=== PATIENT | female | born 1985 | race Caucasian/White ===

== ENCOUNTER → 2018-03-04 07:39 | Outpatient (CLI) | payer BC, SELFPAY ==
--- NOTE | 2018-03-04 07:43 | US_ITS ---
US gallbladder HISTORY: ITS.REASON: pain ORDERING PHYSICIAN: Cecilia Prescott PATIENT AGE: 32 years Comparison: None FINDINGS: PANCREAS: Unremarkable. No obvious mass or abnormal fluid collection. No ductal dilatation LIVER: Diffuse increased echogenicity of the liver with poor through transmission of sound consistent with fatty liver. Portal vein does not appear enlarged. There is appropriate direction of blood flow within the portal vein. No obvious liver lesions. RIGHT KIDNEY: Unremarkable. Normal size and echogenicity. No hydronephrosis GALLBLADDER: Gallbladder is contracted with stones. Common bile duct is normal at 3 mm. Mild gallbladder wall thickening at 3 to 4 mm. No pericholecystic fluid. IMPRESSION: Cholelithiasis with fatty liver
== END ==
PROVIDERS: PCP Nurse Practitioner Family; Visit Provider Nurse Practitioner Family
DX: R10.11 Right upper quadrant pain (principal)
CPT/HCPCS: 76705

== ENCOUNTER → 2018-05-02 09:29 | Outpatient (CLI) | payer BC, SELFPAY ==
[2018-05-02 10:01] LABS: Basophils % 0.3 % (0.1-2.0); Eosinophils # 0.1 K/mm3 (0.0-0.4); Eosinophils % 1.1 % (0.1-12.0); Lymphocytes # 2.8 K/mm3 (0.7-4.5); Lymphocytes % 25.1 K/mm3 (10-50); Mean Corpuscular Hemoglobin 16.4 pg (27.0-31.2); Mean Corpuscular Volume 60.7 fl (81-99); Mean Platelet Volume 7.2 fl (7.4-10.4); Monocytes # 0.5 K/mm3 (0.1-1.0); Monocytes % 4.4 % (1.7-9.3); Neutrophils # 7.6 K/mm3 (1.8-7.8); Neutrophils % 69.1 % (37.0-80.0); Platelet Count 526 K/mm3 (142-424); Red Blood Count 4.45 M/mm3 (4.20-5.40); Red Cell Distribution Width 18.3 % (11.5-17.5)
[2018-05-02 10:13] LABS: Hemoglobin 7.3 g/dL (12.2-16.2)
[2018-05-02 10:38] LABS: Alanine Aminotransferase 38 U/L (12-78); Albumin Level 3.4 gm/dL (3.4-5.0); Albumin/Globulin Ratio 0.8 (1.1-1.8); Alkaline Phosphatase 108 U/L (46-116); Anion Gap 11.7 mEq/L (5-15); Aspartate Amino Transferase 20 U/L (15-37); Bilirubin,Total 0.4 mg/dL (0.2-1.0); Blood Urea Nitrogen 10 mg/dL (7-18); Calcium 8.6 mg/dL (8.5-10.1); Carbon Dioxide 27 mmol/L (21.0-32.0); Chloride 103 mmol/L (98-107); Creatinine,Serum 0.56 mg/dL (0.55-1.02); Estimated Glomerular Filt Rate 125 ml/min (>60); GFR (African American) 152 ML/MIN (>60); Globulin 4.2 gm/dl (1.3-3.2); Glucose 98 mg/dL (74-106); Potassium 4.7 mmoL/L (3.5-5.1); Sodium 137 mmol/L (136-145); Total Protein,Serum 7.6 gm/dL (6.4-8.2)
== END ==
PROVIDERS: PCP Emergency Medicine; Visit Provider Surgery
DX: K82.9 Disease of gallbladder, unspecified (principal)
CPT/HCPCS: 36415; 80053; 85025

== ENCOUNTER → 2018-05-03 08:17 | Outpatient (CLI) | payer BC, SELFPAY ==
[2018-05-03 08:33] LABS: Hematocrit 26.7 % (37.0-47.0)
[2018-05-03 09:05] LABS: Hemoglobin 7.3 g/dL (12.2-16.2)
[2018-05-03 14:40] LABS: Ferritin 5 ng/mL (8-388)
[2018-05-04 08:25] LABS: Iron 12 ug/dL (27-159); UIBC 448 ug/dL (131-425)
[2018-05-04 13:56] LABS: Folate 8.9 ng/mL (>3.0); Iron Saturation 3 % (15-55)
[2018-05-04 13:56] LABS: Vitamin B12 554 pg/mL (232-1245)
== END ==
PROVIDERS: Nurse Practitioner Family; PCP Emergency Medicine; Visit Provider Surgery
DX: K82.9 Disease of gallbladder, unspecified (principal); D64.9 Anemia, unspecified
CPT/HCPCS: 36415; 82607; 82728; 82746; 83540; 83550; 85014; 85018; 85060; 86850

== ENCOUNTER 2018-05-04 09:03 | Outpatient (CLI) | payer BC, SELFPAY ==
[2018-05-04] VITALS (20 sets, daily range): BP systolic 122–154; BP diastolic 72–98; PULSE 93–107; RESP 16–20; TEMP 36.4–36.7; O2SAT 95–100; BMI 42.5; BMI 42.7
--- NOTE | 2018-05-04 15:03 | PC.NURSE ---
1450- BLOOD ALSO DRAWN FROM IV AT THIS TIME FOR POST HGB/HCT.
[2018-05-04 15:06] LABS: Hematocrit 29.3 % (37.0-47.0); Hemoglobin 8.5 g/dL (12.2-16.2)
== END 2018-05-04 15:30 | disposition home or self-care (01) ==
LOC: INF 09:03
PROVIDERS: PCP Emergency Medicine; Visit Provider Nurse Practitioner Family
DX: D64.9 Anemia, unspecified (principal)
CPT/HCPCS: 36430; 85014; 85018; P9016

== ENCOUNTER 2018-05-11 08:25 | Outpatient (CLI) | payer BC, SELFPAY ==
[2018-05-11 08:53] VITALS: BP 140/83; PULSE 111; RESP 18; TEMP 37.1; O2SAT 98
[2018-05-11 09:08] VITALS: BP 125/72; PULSE 99; RESP 16
[2018-05-11 09:23] VITALS: BP 117/72; PULSE 94; RESP 16
== END 2018-05-11 09:40 | disposition home or self-care (01) ==
LOC: INF 08:34
PROVIDERS: Visit Provider Internal Medicine Medical Oncology
DX: D50.0 Iron deficiency anemia secondary to blood loss (chronic) (principal)
CPT/HCPCS: 96365; J1439

== ENCOUNTER 2018-05-18 08:27 | Outpatient (CLI) | payer BC, SELFPAY ==
[2018-05-18 08:55] VITALS: BP 134/92; PULSE 110; RESP 18; O2SAT 96
[2018-05-18 09:10] VITALS: BP 149/85; PULSE 98; RESP 18
[2018-05-18 09:25] VITALS: BP 153/87; PULSE 99; RESP 18
== END 2018-05-18 09:40 | disposition home or self-care (01) ==
LOC: INF 08:27
PROVIDERS: Visit Provider Internal Medicine Medical Oncology
DX: D50.0 Iron deficiency anemia secondary to blood loss (chronic) (principal)
CPT/HCPCS: 96365; J1439

== ENCOUNTER → 2018-05-20 10:11 | Outpatient (CLI) | payer BC, SELFPAY ==
[2018-05-22 10:23] LABS: Peripheral Smear Review Scanned Result
== END ==
PROVIDERS: Visit Provider Emergency Medicine
DX: Z01.818 Encounter for other preprocedural examination (principal)
CPT/HCPCS: 36415

== ENCOUNTER → 2018-06-08 11:00 | Outpatient (CLI) | payer BC, SELFPAY ==
[2018-06-08 14:02] LABS: Urine Pregnancy, HCG Qual. Negative (Negative)
[2018-06-08 14:09] LABS: Alanine Aminotransferase 61 U/L (12-78); Albumin Level 3.7 gm/dL (3.4-5.0); Alkaline Phosphatase 91 U/L (46-116); Anion Gap 15.3 mEq/L (5-15); Aspartate Amino Transferase 22 U/L (15-37); Bilirubin,Total 0.3 mg/dL (0.2-1.0); Blood Urea Nitrogen 9 mg/dL (7-18); Calcium 8.8 mg/dL (8.5-10.1); Carbon Dioxide 26 mmol/L (21.0-32.0); Chloride 102 mmol/L (98-107); Creatinine,Serum 0.58 mg/dL (0.55-1.02); Estimated Glomerular Filt Rate 120 ml/min (>60); GFR (African American) 146 ML/MIN (>60); Globulin 3.7 gm/dl (1.3-3.2); Glucose 84 mg/dL (74-106); Potassium 4.3 mmoL/L (3.5-5.1); Sodium 139 mmol/L (136-145); Total Protein,Serum 7.4 gm/dL (6.4-8.2)
[2018-06-08 14:47] LABS: Basophils # 0.1 K/mm3 (0-0.2); Basophils % 0.6 % (0.1-2.0); Eosinophils # 0.1 K/mm3 (0.0-0.4); Eosinophils % 0.6 % (0.1-12.0); Hematocrit 41.7 % (37.0-47.0); Hemoglobin 12.7 g/dL (12.2-16.2); Lymphocytes # 2.7 K/mm3 (0.7-4.5); Lymphocytes % 26.9 % (10-50); Mean Corpuscular HGB Conc 30.4 g/dL (31.8-35.4); Mean Corpuscular Hemoglobin 24.7 pg (27.0-31.2); Mean Corpuscular Volume 81.1 fl (81-99); Mean Platelet Volume 7.8 fl (7.4-10.4); Monocytes # 0.4 K/mm3 (0.1-1.0); Monocytes % 3.6 % (1.7-9.3); Neutrophils # 6.9 K/mm3 (1.8-7.8); Neutrophils % 68.4 % (37.0-80.0); Platelet Count 310 K/mm3 (142-424); Red Blood Count 5.14 M/mm3 (4.20-5.40); Red Cell Distribution Width 28.6 % (11.5-17.5); White Blood Count 10.1 K/mm3 (4.8-10.8)
== END ==
PROVIDERS: Visit Provider Surgery
DX: Z01.818 Encounter for other preprocedural examination (principal); R10.11 Right upper quadrant pain
CPT/HCPCS: 36415; 80053; 81025; 85025

== ENCOUNTER → 2018-06-22 13:29 | Outpatient (CLI) | payer BC, SELFPAY ==
[2018-06-22 14:02] LABS: Basophils # 0.1 K/mm3 (0-0.2); Basophils % 0.5 % (0.1-2.0); Eosinophils # 0.2 K/mm3 (0.0-0.4); Eosinophils % 1.8 % (0.1-12.0); Hematocrit 41.4 % (37.0-47.0); Hemoglobin 12.6 g/dL (12.2-16.2); Lymphocytes # 2.9 K/mm3 (0.7-4.5); Lymphocytes % 26.1 % (10-50); Mean Corpuscular HGB Conc 30.5 g/dL (31.8-35.4); Mean Corpuscular Hemoglobin 25.1 pg (27.0-31.2); Mean Corpuscular Volume 82.4 fl (81-99); Mean Platelet Volume 7.3 fl (7.4-10.4); Monocytes # 0.4 K/mm3 (0.1-1.0); Monocytes % 3.1 % (1.7-9.3); Neutrophils # 7.7 K/mm3 (1.8-7.8); Neutrophils % 68.5 % (37.0-80.0); Platelet Count 399 K/mm3 (142-424); Red Blood Count 5.03 M/mm3 (4.20-5.40); White Blood Count 11.2 K/mm3 (4.8-10.8)
[2018-06-22 14:03] LABS: Red Cell Distribution Width 26.2 % (11.5-17.5)
[2018-06-22 14:32] LABS: Ferritin 174 ng/mL (8-388)
[2018-06-23 08:27] LABS: Iron 54 ug/dL (27-159); UIBC 215 ug/dL (131-425)
[2018-06-23 09:43] LABS: Iron Saturation 20 % (15-55)
== END ==
PROVIDERS: Visit Provider Internal Medicine Medical Oncology
DX: D50.0 Iron deficiency anemia secondary to blood loss (chronic) (principal)
CPT/HCPCS: 36415; 82728; 83540; 83550; 85025

== ENCOUNTER → 2018-11-24 07:58 | Outpatient (CLI) | payer BC, SELFPAY ==
[2018-11-24 08:29] LABS: Basophils % 0.4 % (0.1-2.0); Eosinophils # 0.1 K/mm3 (0.0-0.4); Eosinophils % 1.2 % (0.1-12.0); Hematocrit 40.1 % (37.0-47.0); Hemoglobin 12.9 g/dL (12.2-16.2); Lymphocytes # 3.5 K/mm3 (0.7-4.5); Lymphocytes % 33.7 % (10-50); Mean Corpuscular HGB Conc 32.2 g/dL (31.8-35.4); Mean Corpuscular Hemoglobin 27.3 pg (27.0-31.2); Mean Corpuscular Volume 84.6 fl (81-99); Mean Platelet Volume 7.3 fl (7.4-10.4); Monocytes # 0.4 K/mm3 (0.1-1.0); Monocytes % 3.8 % (1.7-9.3); Neutrophils # 6.4 K/mm3 (1.8-7.8); Neutrophils % 60.8 % (37.0-80.0); Platelet Count 311 K/mm3 (142-424); Red Blood Count 4.73 M/mm3 (4.20-5.40); Red Cell Distribution Width 13.6 % (11.5-17.5); White Blood Count 10.5 K/mm3 (4.8-10.8)
[2018-11-24 09:21] LABS: Ferritin 25 ng/mL (8-388)
[2018-11-25 08:18] LABS: Iron 73 ug/dL (27-159); UIBC 319 ug/dL (131-425)
[2018-11-25 10:12] LABS: Iron Saturation 19 % (15-55)
== END ==
PROVIDERS: Visit Provider Internal Medicine Medical Oncology
DX: D50.0 Iron deficiency anemia secondary to blood loss (chronic) (principal)
CPT/HCPCS: 36415; 82728; 83540; 83550; 85025

== ENCOUNTER → 2019-02-23 08:17 | Outpatient (CLI) | payer BC, SELFPAY ==
[2019-02-23 08:45] LABS: Basophils % 0.3 % (0.1-2.0); Eosinophils # 0.2 K/mm3 (0.0-0.4); Eosinophils % 1.4 % (0.1-12.0); Hematocrit 38.7 % (37.0-47.0); Hemoglobin 12.5 g/dL (12.2-16.2); Lymphocytes # 2.9 K/mm3 (0.7-4.5); Lymphocytes % 26.9 % (10-50); Mean Corpuscular HGB Conc 32.2 g/dL (31.8-35.4); Mean Corpuscular Hemoglobin 27.3 pg (27.0-31.2); Mean Corpuscular Volume 84.6 fl (81-99); Mean Platelet Volume 7.2 fl (7.4-10.4); Monocytes # 0.4 K/mm3 (0.1-1.0); Monocytes % 3.8 % (1.7-9.3); Neutrophils # 7.4 K/mm3 (1.8-7.8); Neutrophils % 67.6 % (37.0-80.0); Platelet Count 319 K/mm3 (142-424); Red Blood Count 4.57 M/mm3 (4.20-5.40); Red Cell Distribution Width 14.3 % (11.5-17.5); White Blood Count 10.9 K/mm3 (4.8-10.8)
[2019-02-23 09:51] LABS: Ferritin 33 ng/mL (8-388)
[2019-02-24 08:13] LABS: Iron 82 ug/dL (27-159); UIBC 290 ug/dL (131-425)
[2019-02-24 12:35] LABS: Iron Saturation 22 % (15-55)
== END ==
PROVIDERS: Visit Provider Internal Medicine Medical Oncology
DX: D50.0 Iron deficiency anemia secondary to blood loss (chronic) (principal)
CPT/HCPCS: 36415; 82728; 83540; 83550; 85025

== ENCOUNTER 2021-08-12 10:01 | Emergency (ER) | payer BC, SELFPAY ==
[2021-08-12 10:15] VITALS: BP 141/93; PULSE 86; RESP 17; TEMP 36.7; O2SAT 97; BMI 41.3
[2021-08-12 10:26] LABS: Apearance,Urine Clear (Clear); Bilirubin,Urine Negative (Negative); Blood, Urine 3+ (Negative); Color,Urine Dark Yellow (Yellow); Glucose,Urine (UA) Negative (Negative); Ketones,Urine Negative (Negative); PH,Urine 6.5 (5.0-8.5); Protein,Urine 1+ (Negative); Specific Gravity, Urine 1.025 (1.005-1.030); UTC Leukocyte Esterase,Urine 2+ (Negative); UTC Nitrate,Urine Positive (Negative); Urobilinogen,Urine 1 EU/dl (0.2)
--- NOTE | 2021-08-12 10:26 | HMH.EDUTC ---
[facility] [place] Disposition Clinical Impression: UTI (urinary tract infection) Disposition: Home, Self-Care Condition on Discharge: Good Instructions: Urinary Tract Infection, DI for Urinary Tract Infection (UTI), Phenazopyridine Additional Instructions: Drink plenty of fluids. Take tylenol or ibuprofen for pain or fever. Take the medications as directed. Follow up with your regular doctor. GO TO THE ER FOR ANY WORSENING SYMPTOMS The pyridium will make your urine turn orange, this is an expected side effect. It will stain your clothes if it comes into contact with them. Prescriptions: Ondansetron [Zofran 4mg ODT] 4 mg PO Q8HP PRN #20 tab PRN Reason: Nausea Transmission Status: Received by [facility] Sulfamethoxazole/Trimethoprim [Bactrim DS tablet] 1 each PO BID 7 Days #14 tab Transmission Status: Received by [facility] Phenazopyridine HCl [Pyridium 200mg Tablet] 200 pow PO TID #6 tab Transmission Status: Received by [facility] Referrals: Lamont Manrique APRN [Primary Care Provider] - Forms: Work/School Release Time of Disposition: 10:55 Medical Decision Making - Medical Records Medical records reviewed: No: I reviewed the patient's medical records. - Chris Inquiry Pt receiving controlled substance: No Vital Signs: 08/12/21 10:15 08/12/21 11:02 Temperature 98.0 F 98.0 F Temperature Source Oral Pulse Rate 86 Pulse Rate [Right Brachial] 86 Respiratory Rate 17 17 Blood Pressure 141/93 H Blood Pressure [Right Arm] 141/93 H Blood Pressure Mean [Right Arm] 109 Blood Pressure Source [Right Arm] Automatic Cuff Blood Pressure Position [Right Arm] Sitting 02 Sat by Pulse Oximetry 97 Oxygen Delivery Method Room Air - Lab Data Lab results reviewed: Yes: I reviewed the patient's lab results. Lab Results 08/12/21 10:16: Urine Color Dark yellow, Urine Appearance Clear, Urine pH 6.5, Ur Specific [place] 1.025, Urine Protein 1+, Urine Glucose (UA) Negative, Urine Ketones Negative, Urine Blood 3+, Urine Nitrate Positive A, Urine Bilirubin Negative, Urine Urobilinogen 1, Ur Leukocyte Esterase 2+ A Orders (Tests/Meds): ORDERS Category Date Time Status Urine Culture Stat Micro 08/12/21 10:25 Received [facility] [place] HPI - General Stated complaint: possible uti Time Seen by Provider: 08/12/21 10:26 - History of Present Illness Provider Complaint: She states that for the past 4 days she has had dysuria and low back pain. She feels like she has a uti. - Related Data Home Medications Medication Instructions Recorded Confirmed Escitalopram Oxalate 20 mg PO DAILY 08/12/21 08/12/21 hydroCHLOROthiazide 12.5 mg PO DAILY 08/12/21 08/12/21 [Hydrochlorothiazide 12.5mg Tab] Previous Rx's Medication Instructions Recorded Ondansetron [Zofran 4mg ODT] 4 mg PO Q8HP PRN #20 tab 08/12/21 Phenazopyridine HCl [Pyridium 200 pow PO TID #6 tab 08/12/21 200mg Tablet] Sulfamethoxazole/Trimethoprim 1 each PO BID 7 Days #14 tab 08/12/21 [Bactrim DS tablet] Allergies Allergy/AdvReac Type Severity Reaction Status Date / Time Penicillins Allergy Verified 07/31/21 10:45 [facility] History - Hepatitis A Screen Attestation statement:: This patient has been screened for Hepatitis A risk factors. I have reviewed the patient's past medical history: Yes Medical History: Reports:: Anxiety, Depression, Hypertension Denies:: Cancer, Diabetes Mellitus Type 1, Diabetes Mellitus Type 2, Internal Pacemaker, MRSA, Seizures Other Medical History: Reports: Anemia. Denies: Blood Transfusion Reaction, Thyroid Disease Other Surgeries: Yes: No Previous Surgery, Cholecystectomy, Other. No: Pacemaker Amputation: No Fractures: No Comment: [place] teeth 2003 - Social History Smoking Status: Never smoker Alcohol Intake: never Substance Use Type: denies use Occupational Status: employed Housing: house Household Members: family - Psychiatric History Ps
[2021-08-12 11:02] VITALS: BP 141/93; PULSE 86; RESP 17; TEMP 36.7; O2SAT 97
== END 2021-08-12 11:03 | disposition home or self-care (01) ==
PROVIDERS: Emergency Provider Nurse Practitioner Family; PCP Nurse Practitioner Family
DX: N39.0 Urinary tract infection, site not specified (principal); I10 Essential (primary) hypertension; F41.8 Other specified anxiety disorders
CPT/HCPCS: 81003; 87086; 87088; 87186; 99202; G0463

== ENCOUNTER → 2021-08-19 14:23 | Outpatient (POV) | payer BC, SELFPAY | PROVIDERS: Visit Provider Dermatology | DX: Z00.00 Encounter for general adult medical examination without abnormal findings (principal) ==

== ENCOUNTER → 2021-08-26 15:10 | Outpatient (POV) | payer BC, SELFPAY | PROVIDERS: Visit Provider Dermatology | DX: Z00.00 Encounter for general adult medical examination without abnormal findings (principal) ==

== ENCOUNTER 2021-09-09 09:01 | Emergency (ER) | payer BC, SELFPAY ==
--- NOTE | 2021-09-09 09:24 | HMH.EDUTC ---
[facility] [place] Clinical Impression: UTI (urinary tract infection) Qualifiers: Urinary tract infection type: site unspecified Hematuria presence: with hematuria Qualified Code(s): N39.0 - Urinary tract infection, site not specified Disposition: Home, Self-Care Condition on Discharge: Good Instructions: Urinary Tract Infection, Urine Culture, DI for Urinary Tract Infection (UTI) Additional Instructions: Drink plenty of fluids. Take tylenol or ibuprofen for pain or fever. Take the medications as directed. Follow up with your regular doctor. GO TO THE ER FOR ANY WORSENING SYMPTOMS The pyridium will make your urine turn orange, this is an expected side effect. It will stain your clothes if it comes into contact with them. We will culture the urine. That will tell what bacteria is causing your infection and which antibiotics will treat it best. Sometimes the first antibiotic we prescribe turns out to not work against different bacteria. So, make sure you follow up within 3 days if you are not getting better. Prescriptions: Ondansetron [Zofran 4mg ODT] 4 mg PO Q8HP PRN #20 tab PRN Reason: Nausea Transmission Status: Received by [facility] Ciprofloxacin HCl [Cipro 500mg Tab] 500 mg PO BID 7 Days #14 tab Transmission Status: Received by [facility] Phenazopyridine HCl [Pyridium 200mg Tablet] 200 pow PO TID #6 tab Transmission Status: Received by [facility] Referrals: Lamont Manrique APRN [Primary Care Provider] - Forms: Work/School Release Time of Disposition: 09:40 Medical Decision Making - Medical Records Medical records reviewed: No: I reviewed the patient's medical records. - Chris Inquiry Pt receiving controlled substance: No Vital Signs: 09/09/21 09:34 09/09/21 09:57 Temperature 98.1 F 98.1 F Temperature Source Oral Pulse Rate 103 H Pulse Rate [Left] 103 H Respiratory Rate 16 16 Blood Pressure 145/94 H Blood Pressure [Right Arm] 145/94 H Blood Pressure Mean [Right Arm] 111 02 Sat by Pulse Oximetry 97 - Lab Data Lab results reviewed: Yes: I reviewed the patient's lab results. Lab Results 09/09/21 09:33: Urine Color [place], Urine Appearance Clear, Urine pH 5.5, Ur Specific [place] 1.020, Urine Protein 1+, Urine Glucose (UA) Trace, Urine Ketones Negative, Urine Blood 2+, Urine Nitrate Positive A, Urine Bilirubin Negative, Urine Urobilinogen 1, Ur Leukocyte Esterase 3+ A Orders (Tests/Meds): ORDERS Category Date Time Status Urine Culture Stat Micro 09/09/21 09:33 [place] [facility] [place] - General Stated complaint: possible uti Time Seen by Provider: 09/09/21 09:24 - History of Present Illness Provider Complaint: She states that she has had right sided low back pain and urinary frequency for the past 2 days. She has been getting uti's kind of frequently recently and that is what she thinks is happening now. - Related Data Home Medications Medication Instructions Recorded Confirmed Escitalopram Oxalate 20 mg PO DAILY 08/12/21 08/12/21 hydroCHLOROthiazide 12.5 mg PO DAILY 08/12/21 08/12/21 [Hydrochlorothiazide 12.5mg Tab] Previous Rx's Medication Instructions Recorded Ondansetron [Zofran 4mg ODT] 4 mg PO Q8HP PRN #20 tab 08/12/21 Phenazopyridine HCl [Pyridium 200 pow PO TID #6 tab 08/12/21 200mg Tablet] Sulfamethoxazole/Trimethoprim 1 each PO BID 7 Days #14 tab 08/12/21 [Bactrim DS tablet] Ciprofloxacin HCl [Cipro 500mg 500 mg PO BID 7 Days #14 tab 09/09/21 Tab] Ondansetron [Zofran 4mg ODT] 4 mg PO Q8HP PRN #20 tab 09/09/21 Phenazopyridine HCl [Pyridium 200 pow PO TID #6 tab 09/09/21 200mg Tablet] Allergies Allergy/AdvReac Type Severity Reaction Status Date / Time Penicillins Allergy Verified 07/31/21 10:45 [facility] History - Hepatitis A Screen Attestation statement:: This patient has been screened for Hepatitis A risk factors. I have reviewed the patient's
[2021-09-09 09:34] VITALS: BP 145/94; PULSE 103; RESP 16; TEMP 36.7; O2SAT 97; BMI 42.7
[2021-09-09 09:57] VITALS: BP 145/94; PULSE 103; RESP 16; TEMP 36.7
[2021-09-09 19:04] LABS: Apearance,Urine Clear (Clear); Color,Urine Orange (Yellow); PH,Urine 5.5 (5.0-8.5)
[2021-09-09 19:05] LABS: Bilirubin,Urine Negative (Negative); Blood, Urine 2+ (Negative); Glucose,Urine (UA) Trace (Negative); Ketones,Urine Negative (Negative); Protein,Urine 1+ (Negative); UTC Leukocyte Esterase,Urine 3+ (Negative); UTC Nitrate,Urine Positive (Negative); Urobilinogen,Urine 1 EU/dl (0.2)
== END 2021-09-09 09:57 | disposition home or self-care (01) ==
PROVIDERS: Emergency Provider Nurse Practitioner Family; PCP Nurse Practitioner Family
DX: N30.00 Acute cystitis without hematuria (principal); F41.8 Other specified anxiety disorders; I10 Essential (primary) hypertension
CPT/HCPCS: 81003; 87086; 87088; 87186; 99202; G0463

== ENCOUNTER → 2021-09-16 15:27 | Outpatient (POV) | payer BC, SELFPAY | PROVIDERS: Visit Provider Dermatology | DX: Z00.00 Encounter for general adult medical examination without abnormal findings (principal) ==

== ENCOUNTER → 2021-12-02 14:51 | Outpatient (POV) | payer BC, SELFPAY | PROVIDERS: Visit Provider Dermatology | DX: Z00.00 Encounter for general adult medical examination without abnormal findings (principal) ==

== ENCOUNTER → 2022-02-17 15:21 | Outpatient (POV) | payer BC, SELFPAY | PROVIDERS: Visit Provider Dermatology | DX: Z00.00 Encounter for general adult medical examination without abnormal findings (principal) ==

== ENCOUNTER → 2022-05-19 16:08 | Outpatient (POV) | payer BC, SELFPAY | PROVIDERS: Visit Provider Dermatology | DX: Z00.00 Encounter for general adult medical examination without abnormal findings (principal) ==

== ENCOUNTER 2022-06-04 08:48 | Emergency (ER) | payer BC, SELFPAY ==
[2022-06-04 09:20] VITALS: BP 146/79; PULSE 86; RESP 18; TEMP 36.8; O2SAT 98; BMI 44.4
--- NOTE | 2022-06-04 09:53 | EXP.UTC ---
Discharge Plan Disposition Patient Disposition: Home, Self-Care Condition: Good Prescriptions Prescriptions: New azithromycin [Zithromax Z-Nav] 250 mg tablet See Rx Instructions .ROUTE .COMPLEX 5 Days Qty: 6 0RF Rx Instructions: For 250 mg dose pack: take 500 mg today (day 1), then 250 mg for 4 days (days 2-5) No Action ibuprofen 600 mg tablet 600 mg PO Q8H PRN (Reason: pain) Qty: 60 0RF hydrochlorothiazide 12.5 mg tablet See Rx Instructions .ROUTE .COMPLEX Qty: 90 1RF Dose Instruction: TAKE ONE TABLET BY MOUTH EVERY DAY Rx Instructions: TAKE ONE TABLET BY MOUTH EVERY DAY escitalopram oxalate 20 mg tablet 20 mg PO DAILY Qty: 90 1RF Referrals Follow up/Referrals: Jacob Nichols MD [Primary Care Provider] - See instructions Activity Restrictions/Add. Instructions Additional Instructions/Restrictions: *Monitor Temp, Over the counter Motrin or Tylenol as directed/as needed Tylenol every 4 hours and Motrin every 6 hours (as long as your family doctor has told you that you can take it) for fever or pain. and straight to ER if unable to lower temp less than 101.0 after medication given *Warm salt water gargles may help to soothe the throat *Throat Lozenges? *Warm fluids like tea with honey may help to soothe the throat? *Sleep elevated *Humidifier/Vaporizer Your throat swab was sent for culture. Those results are typically sent to your primary care. Be sure to follow up in 2-3 days with your family doctor/primary care physician if no improvement so they can review those result and treat if necessary. If you don?t have a primary care doctor, I recommend you get one but in the mean time, you will have to return to a walk in clinic Follow up IMMEDIATELY for new or worsening symptoms or no Noticeable improvement over the next 48-72 hours. 911 for difficulty breathing or swallowing Clinical Impressions Clinical Impression: Acute bacterial tonsillitis Stand Alone Forms Stand Alone Forms: Work/School Release Instructions Patient Instructions: Strep Throat, DI for Strep Throat Discharge ED Provider: Kat Masters [facility] General Stated complaint: White patch on tonsil Mode of Arrival: Ambulatory Source of Information: Patient Limitations: No Limitations Time Seen by Provider: 06/04/22 09:53 Description of Symptoms (Recalled from Triage Doc. 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 #90 tabs 03/25/22 azithromycin 250 mg tablet See Rx Instructions PO .COMPLEX 5 06/04/22 (Zithromax Z-Nav) days #6 tabs Allergies Allergy/AdvReac Type Severity Reaction Status Date / Time Penicillins Allergy Verified 01/27/22 10:30 Worker's Comp Is this a Worker's Comp case?: No PFSH PFSH Medical History (Updated 06/04/22 @ 10:05 by Kat Masters APRN) Anxiety Depression History of anemia Hypertension Urinary tract infection Surgical History (Updated 06/04/22 @ 09:40 by Gail Jean RN) History of cholecystectomy Hx of wisdom tooth extraction Social History (Updated 06/04/22 @ 09:40 by Gail Jean RN) Smoking Status:
[2022-06-04 10:03] LABS: UTC Strep Screen (Rapid) Negative (Negative)
[2022-06-04 10:05] VITALS: BP 146/79; PULSE 86; RESP 18; TEMP 36.8; O2SAT 98
== END 2022-06-04 10:08 | disposition home or self-care (01) ==
PROVIDERS: Emergency Provider Nurse Practitioner; PCP Emergency Medicine
DX: J03.80 Acute tonsillitis due to other specified organisms (principal)
CPT/HCPCS: 87880; 99212; G0463

== ENCOUNTER → 2022-08-06 09:15 | Outpatient (CLI) | payer BC, SELFPAY ==
[2022-08-06 14:49] LABS: Basophils # 0.1 K/mm3 (0-0.2); Basophils % 0.6 % (0.1-2.0); Eosinophils # 0.1 K/mm3 (0.0-0.4); Eosinophils % 1.2 % (0.1-12.0); Hemoglobin 14.1 g/dL (12.2-16.2); Lymphocytes # 1.7 K/mm3 (0.7-4.5); Lymphocytes % 17.5 % (10-50); Mean Corpuscular HGB Conc 33.5 g/dL (31.8-35.4); Mean Corpuscular Volume 86.7 fl (81-99); Mean Platelet Volume 9.3 fl (7.4-10.4); Monocytes # 0.4 K/mm3 (0.1-1.0); Monocytes % 3.7 % (1.7-9.3); Neutrophils # 7.4 K/mm3 (1.8-7.8); Platelet Count 344 K/mm3 (142-424); Red Blood Count 4.85 M/mm3 (4.20-5.40); Red Cell Distribution Width 13.9 % (11.5-17.5); White Blood Count 9.6 K/mm3 (4.8-10.8)
[2022-08-06 14:58] LABS: Alanine Aminotransferase 32 U/L (12-78); Albumin Level 4.3 g/dl (3.5-5.0); Albumin/Globulin Ratio 1.6 (1.1-1.8); Alkaline Phosphatase 79 U/L (38-126); Anion Gap 11.9 mEq/L (5-15); Aspartate Amino Transferase 28 U/L (14-36); Bilirubin,Total 0.6 mg/dl (0.2-1.3); Blood Urea Nitrogen 12 mg/dl (7-17); Calcium 8.6 mg/dl (8.4-10.2); Carbon Dioxide 25 mmol/L (22.0-30.0); Chloride 104 mmol/L (98-107); Chol/HDL Ratio 5.2 (1-3.5); Cholesterol 171 mg/dl (140-200); Estimated Glomerular Filt Rate 113 ml/min (>60); GFR (African American) 137 ML/MIN (>60); Globulin 2.7 g/dL (1.3-3.2); Glucose 177 mg/dl (74-100); HDL Cholesterol 33 mg/dl (40-60); Potassium 3.9 mmoL/L (3.5-5.1); Sodium 137 mmol/L (136-145); Triglycerides 68 mg/dl (30-150); VLDL Cholesterol 14 mg/dL (0-40)
[2022-08-06 15:09] LABS: Direct LDL Cholesterol 115.04 mg/dL (100-129)
[2022-08-06 15:29] LABS: Thyroid Stimulating Hormone 2.49 uIU/mL (0.465-4.68)
[2022-08-06 15:47] LABS: Iron 82 ug/dL (37-170)
[2022-08-06 16:02] LABS: Total Iron Binding Capacity 311 ug/dL (265-497)
[2022-08-06 16:24] LABS: Ferritin 52.2 ng/ml (6.24-137)
== END ==
PROVIDERS: PCP Nurse Practitioner Family; Visit Provider Nurse Practitioner Family
DX: R53.83 Other fatigue (principal); I10 Essential (primary) hypertension; E66.9 Obesity, unspecified; Z68.41 Body mass index [BMI] 40.0-44.9, adult
CPT/HCPCS: 80053; 80061; 82728; 83540; 83550; 84443; 85025

== ENCOUNTER → 2023-02-02 12:50 | Outpatient (CLI) | payer BC, SELFPAY | PROVIDERS: PCP Nurse Practitioner Family; Visit Provider Nurse Practitioner Family | DX: G47.33 Obstructive sleep apnea (adult) (pediatric) (principal); R06.83 Snoring; R40.0 Somnolence | CPT/HCPCS: G0399 ==

== ENCOUNTER → 2023-03-18 15:00 | Outpatient (CLI) | payer BC, SELFPAY ==
[2023-03-18 16:58] LABS: Basophils # 0.1 K/mm3 (0-0.2); Basophils % 0.6 % (0.1-2.0); Eosinophils # 0.1 K/mm3 (0.0-0.4); Eosinophils % 1.3 % (0.1-12.0); Hematocrit 46.4 % (37.0-47.0); Hemoglobin 15.4 g/dL (12.2-16.2); Lymphocytes # 2.1 K/mm3 (0.7-4.5); Lymphocytes % 19.4 % (10-50); Mean Corpuscular HGB Conc 33.2 g/dL (31.8-35.4); Mean Corpuscular Hemoglobin 28.5 pg (27.0-31.2); Mean Corpuscular Volume 86.1 fl (81-99); Mean Platelet Volume 8.5 fl (7.4-10.4); Monocytes # 0.5 K/mm3 (0.1-1.0); Monocytes % 4.8 % (1.7-9.3); Neutrophils # 8.1 K/mm3 (1.8-7.8); Platelet Count 342 K/mm3 (142-424); Red Blood Count 5.39 M/mm3 (4.20-5.40); Red Cell Distribution Width 13.4 % (11.5-17.5)
[2023-03-18 18:00] LABS: Chloride 100 mmol/L (98-107); Potassium 4.3 mmoL/L (3.5-5.1); Sodium 138 mmol/L (136-145)
[2023-03-18 18:03] LABS: Alanine Aminotransferase 35 U/L (12-78); Albumin Level 4.2 g/dl (3.5-5.0); Alkaline Phosphatase 109 U/L (38-126); Anion Gap 17.3 mEq/L (5-15); Aspartate Amino Transferase 30 U/L (14-36); Blood Urea Nitrogen 15 mg/dl (7-17); Calcium 9.7 mg/dl (8.4-10.2); Carbon Dioxide 25 mmol/L (22.0-30.0); Cholesterol 188 mg/dl (140-200); Estimated Glomerular Filt Rate 81 ml/min (>60); GFR (African American) 98 ML/MIN (>60); Glucose 134 mg/dl (74-100); Total Protein,Serum 7.7 g/dl (6.3-8.2); Triglycerides 188 mg/dl (30-150); VLDL Cholesterol 38 mg/dL (0-40)
[2023-03-18 18:04] LABS: Chol/HDL Ratio 5.5 (1-3.5); HDL Cholesterol 34 mg/dl (40-60); Magnesium 1.7 mg/dl (1.6-2.3)
[2023-03-18 18:15] LABS: Direct LDL Cholesterol 124.19 mg/dL (100-129)
[2023-03-18 18:34] LABS: Thyroid Stimulating Hormone 3.06 uIU/mL (0.465-4.68)
[2023-03-18 21:12] LABS: Bilirubin,Indirect 0.2 mg/dL (0.0-0.9); Bilirubin,Unconjugated 0.3 mg/dL (0.0-1.1)
[2023-03-18 21:13] LABS: Bilirubin,Total 0.2 mg/dl (0.2-1.3)
== END ==
PROVIDERS: PCP Nurse Practitioner Family; Visit Provider Nurse Practitioner
DX: R06.00 Dyspnea, unspecified (principal); R00.0 Tachycardia, unspecified; R60.0 Localized edema; R94.31 Abnormal electrocardiogram [ECG] [EKG]; Z79.899 Other long term (current) drug therapy
CPT/HCPCS: 36415; 80048; 80061; 80076; 83735; 84439; 84443; 85025

== ENCOUNTER → 2023-04-08 08:40 | Outpatient (CLI) | payer BC, SELFPAY ==
--- NOTE | 2023-04-08 08:45 | CA_ITS ---
APPROVED REPORT EXAM: Comprehensive 2D, Doppler, and color-flow Echocardiogram Sand Cutter Operator: Raiza Montenegro, RCS, RVS Ht: 5 ft 4 in Wt: 275lbs BSA: 2.24 BP: 166/109 mmHg Indications: Tachycardia, Abn EKG,Ex-smoker, SOB, HTN 2D Dimensions Aortic Root 2.91 cm F: 2.7 - 3.3 LA Volume 48.90 mL Left Atrium 3.82 cm F: 2.7 - 3.8 LA Volume Index 21.587227 mL/m2 (M/F) 16-34 LVOT 1.97 cm (M/F) 1.5-2.5 M-Mode Dimensions RVDd 2.75 cm (0.9-2.6) LA Diam 4.64 cm (1.9-4.0) LVDd 4.95 cm (3.5-5.7) Ao Diam 3.15 cm (2.0-3.7) LVDs 3.17 cm (3.5-5.7) IVSd 1.06 cm (0.6-1.1) PWd 1.06 cm (0.6-1.1) EF (Teich) 65.40% EPSs 0.34 cm FS 36.00% EDV (Teich) 115.50 mL TAPSE 2.48 (<1.7) ESV (Teich) 40.00 mL LV Diastology E Decel Time 220.00 (160-240 msec) E/A Ratio 1.83 MED E' 13.00 (< 7 cm/sec) MED A' 8.80 cm/s E'/MED E' Ratio 7.21 (>14) LAT E' 16.50 (<10 cm/sec) LAT A' 7.30 cm/s E/LAT E' Ratio 5.68 (>14) Aortic Valve LVOT Max 103.00 (70-110 cm/s) LVOT VTI 21.01 cm AoV Peak [place]. 103.00 (50-130 cm/s) AO Peak GR. 4.20 mmHg AO Mean GR. 2.10 (<5 mmHg) AO VTI 19.57 (18-25 cm) LALA (VTI) 3.27 (2.5-4.5 cm2) Mitral Valve MV A Velocity 51.00 (40-130 cm/s) E/A Ratio 1.83 MV Decel. Time 220.00 (160-240 ms) Pulmonary Valve PV Peak Velocity 90.00 (50-150 cm/s) Left Ventricle The left ventricle is normal size. The left ventricular systolic function is normal. The left ventricular ejection fraction is within the normal range. There is normal left ventricular wall thickness. There is normal LV segmental wall motion. The left ventricular diastolic function is normal. LVEF is 55-60%. Right Ventricle The right ventricle is normal size. The right ventricular systolic function is normal. Atria The left atrium size is normal. The right atrium size is normal. There is no Doppler evidence of interatrial shunt. Aortic Valve The aortic valve opens well. There is no aortic valvular stenosis. No aortic regurgitation. Mitral Valve The mitral valve is normal in structure. No evidence of mitral valve stenosis. Trace mitral regurgitation. Tricuspid Valve The tricuspid valve leaflets are thin and pliable. Trace tricuspid regurgitation. There is insufficient TR jet to estimate RVSP. Pulmonic Valve The pulmonary valve is normal in structure. Trace pulmonic regurgitation. Great Vessels The aortic root is normal in size. The ascending aorta is normal in size. IVC is normal in size and collapses >50% with inspiration. Pericardium There is no pericardial effusion. Other Information Study Quality: Fair Conclusion Normal biventricular systolic function. No significant valvular stenosis or regurgitation. Electronically signed by : Hien Boyce MD 04/11/2023 15:07:21
== END ==
PROVIDERS: PCP Nurse Practitioner Family; Visit Provider Nurse Practitioner
DX: R06.00 Dyspnea, unspecified (principal); R00.0 Tachycardia, unspecified; R94.31 Abnormal electrocardiogram [ECG] [EKG]; R60.0 Localized edema
CPT/HCPCS: 93306

== ENCOUNTER → 2023-05-06 11:45 | Outpatient (CLI) | payer BC, SELFPAY ==
--- NOTE | 2023-05-06 | CA_ITS ---
APPROVED REPORT Exam: Pharmacologic Technologist: Nicole Salinas, Ht: 5 ft 5 in Wt: 280 lbs BSA: 2.28 m2 HR: 79 bpm BP: 133/71 mmHg Rhythm: NSR Medical History Medications: Hydrochlorothiazide,,,,, LoraTADINE,,,,, BisOPROLOL Fumarate,,,,, Escitalopram Oxalate,,,,, SLynd,,,,, SpirOLolactone,,,,, Stress Test Details Test: LEXISCAN Reason for pharmacologic stress test: physical limitation. HR Resting HR: 68 bpm Max Heart Rate (APMHR): 183 bpm Max HR Achieved: 102 bpm Target HR (85% APMHR): 156 bpm % of APMHR: 56 Recovery HR: 74 bpm BP Resting BP: 133.0/71.0 mmHg Max BP: 138.0/80.0 mmHg Recovery BP: 123.0/76.0 mmHg ECG Resting ECG: NSR, nonspecific ST changes in inferior leads Stress ECG: No significant ST changes Arrhythmia: None Clinical Exercise duration: 04:01 min Highest Stage Achieved: Stress ECG Conclusion Symptoms: mild leg & stomach discomfort. No CP. Arrhythmias/Ectopy: None ST-T Changes: No significant ST changes. Conclusion: Unremarkable Lexiscan stress test. Myoview images are reported separately. Test Summary REST . . . . . . . Resting REST 02:30 . . 68 . 133/ 71 . . Stage 1 01:00 . . 100 . . . . Stage 2 01:00 . . 95 . . . . Stage 3 01:00 . . 85 . 138/ 80 . . Stage 4 01:00 . . 83 . 124/ 69 . . Stage 4 01:01 . . 83 . 124/ 69 . Stop exercise at 04:01 RECOVERY 01:00 . . 85 . 126/ 71 . . RECOVERY 02:00 . . 84 . 126/ 71 . . RECOVERY 03:00 . . 74 . 132/ 78 . . RECOVERY 03:22 . . 74 . 123/ 76 . . Electronically signed by : Hien Boyce MD 05/09/2023 22:33:14
--- NOTE | 2023-05-06 11:45 | NM_ITS ---
APPROVED REPORT Exam: Nuclear Stress Test Indication: chest pain..soa Patient Location: Outpatient Stress Tech: Nicole Davis [place] Tech:DENNY Corea RT(R)(N) Ht: 5 ft 6 in Wt: 278 lbs Bra Size: dd HR: 68 bpm BP: 133/71 mmHg BSA: 2.30 m2 Rhythm: NSR TID: 1.20 BMI: 44.8 History: chest pain..soa Procedure: Patient received 0.4 mg of intravenous Lexiscan, resting heart rate 68 bpm, resting blood pressure 133/71 mmHg, with Lexiscan maximum heart rate achieved was 102 bpm which is 85 % of the maximum predicted heart rate and blood pressure was 138/80 mmHg. With Lexiscan, patient denied any complaint of chest pain. Cardiac Stress and Resting SPECT Images: Cardiac Stress and Resting SPECT images were obtained using technetium 99m Myoview 31.7 mCi stress and 10.64 mCi at rest. Raw images demonstrate significant soft tissue overlap with the anterior LV wall border. This may affect the diagnostic interpretation of the study findings. Resting and stress imaging in supine position demonstrate a large sized, moderate, predominantly fixed perfusion defect in the anterior LV wall. This is no longer visualized with prone stress imaging. Findings are suggestive of soft tissue attenuation. There is also borderline increase in transient ischemic dilatation ratio (TID 1.20), suggestive of possible multivessel disease or balanced ischemia. Gated imaging demonstrates normal global and regional LV systolic function. LVEF is calculated at 58%. Conclusion: Soft tissue attenuation is present Borderline increase in transient ischemic dilatation ratio (TID 1.20), suggestive of possible multivessel disease or balanced ischemia. Gated imaging demonstrates normal global and regional LV systolic function. LVEF is calculated at 58%. Electronically signed by : Hien Boyce MD 05/09/2023 22:36:04
== END ==
PROVIDERS: PCP Nurse Practitioner Family; Visit Provider Nurse Practitioner
DX: R06.00 Dyspnea, unspecified (principal); R00.0 Tachycardia, unspecified; R94.31 Abnormal electrocardiogram [ECG] [EKG]; E66.01 Morbid (severe) obesity due to excess calories; Z68.42 Body mass index [BMI] 45.0-49.9, adult
CPT/HCPCS: 78452; 93017; A9502; J2785

== ENCOUNTER 2023-08-26 11:00 | Outpatient (CLI) | payer BC, SELFPAY ==
--- NOTE | 2023-08-26 11:01 | US_ITS ---
PROCEDURE: US TRANSVAGINAL CLINICAL INDICATION: amenorrhea COMPARISON: No exams were available for comparison FINDINGS: Transvaginal sonographic images of the pelvis were obtained. UTERUS: 7.9 cm X 4.4cmx 5.2 cm anteverted with a combined endometrial thickness of 7.8mm. There is a nabothian cyst in the cervix measuring 0.7 cm. There is a small amount of fluid in the lower uterine segment. There appears to be a posterior uterine fibroid measuring 2.0 cm x 1.8 cm x 1.6 cm. LEFT OVARY: [id number] with a volume of 6ml. There are multiple small follicles in the left ovary. The largest follicle measures 1.3 cm x 0.7 cm. RIGHT OVARY: 4cmx [id number] with a volume of 13.8ml. There is a follicle within the right ovary measuring 1.9 cm x 2.1 cm x 1.8 cm. There is a granular echoic area in the follicle possibly consistent with old blood. Both ovaries are seen and appear normal. Doppler flow to both ovaries are seen. There is trace fluid in the cul-de-sac. IMPRESSION: 1. Anteverted uterus normal in shape and size. The endometrium appears normal. There is small amount of fluid in the lower uterine segment. 2. In the posterior uterus there is a fibroid measuring 2 cm in size. 3. Both ovaries seen and appear normal. Within the right ovary there is a follicular cyst measuring 2.1 cm with a hyperechoic area suggestive of a small clot. 4. The left ovary has multiple small follicles. 5. There is trace fluid in the cul-de-sac. Dictated by: Vahid Hayden MD 08/26/2023 16:26 Vahid Hayden MD in OV 08/26/2023 16:26
[2023-08-26 11:51] LABS: Basophils % 0.3 % (0.1-2.0); Eosinophils # 0.1 K/mm3 (0.0-0.4); Eosinophils % 0.9 % (0.1-12.0); Hematocrit 39.6 % (37.0-47.0); Hemoglobin 13.2 g/dL (12.2-16.2); Lymphocytes # 2.7 K/mm3 (0.7-4.5); Lymphocytes % 24.1 % (10-50); Mean Corpuscular HGB Conc 33.2 g/dL (31.8-35.4); Mean Corpuscular Hemoglobin 28.4 pg (27.0-31.2); Mean Corpuscular Volume 85.4 fl (81-99); Mean Platelet Volume 7.2 fl (7.4-10.4); Monocytes # 0.5 K/mm3 (0.1-1.0); Monocytes % 4.1 % (1.7-9.3); Neutrophils % 70.6 % (37.0-80.0); Platelet Count 277 K/mm3 (142-424); Red Blood Count 4.63 M/mm3 (4.20-5.40); Red Cell Distribution Width 13.5 % (11.5-17.5); White Blood Count 11.3 K/mm3 (4.8-10.8)
[2023-08-26 13:17] LABS: Ferritin 21.8 ng/ml (6.24-137)
== END 2023-08-26 23:59 ==
LOC: RAD 11:01
PROVIDERS: PCP Nurse Practitioner Family; Visit Provider Obstetrics & Gynecology
DX: D50.0 Iron deficiency anemia secondary to blood loss (chronic) (principal); N92.0 Excessive and frequent menstruation with regular cycle
CPT/HCPCS: 36415; 76830; 82397; 82728; 85025

== ENCOUNTER 2024-01-27 18:54 | Outpatient (CLI) | payer BC, SELFPAY ==
[2024-01-27 19:55] LABS: Basophils # 0.1 K/mm3 (0-0.2); Basophils % 0.6 % (0.1-2.0); Eosinophils # 0.1 K/mm3 (0.0-0.4); Eosinophils % 1.4 % (0.1-12.0); Hemoglobin 12.8 g/dL (12.2-16.2); Lymphocytes # 2.6 K/mm3 (0.7-4.5); Mean Corpuscular HGB Conc 32.8 g/dL (31.8-35.4); Mean Corpuscular Hemoglobin 29.2 pg (27.0-31.2); Mean Platelet Volume 9.8 fl (7.4-10.4); Monocytes # 0.4 K/mm3 (0.1-1.0); Monocytes % 4.4 % (1.7-9.3); Neutrophils # 5.8 K/mm3 (1.8-7.8); Neutrophils % 64.7 % (37.0-80.0); Platelet Count 292 K/mm3 (142-424); Red Blood Count 4.39 M/mm3 (4.20-5.40); Red Cell Distribution Width 14.4 % (11.5-17.5)
[2024-01-27 20:19] LABS: Alanine Aminotransferase 19 U/L (12-78); Albumin Level 3.8 g/dl (3.5-5.0); Albumin/Globulin Ratio 1.3 (1.1-1.8); Alkaline Phosphatase 84 U/L (38-126); Anion Gap 12.2 mEq/L (5-15); Aspartate Amino Transferase 21 U/L (14-36); Bilirubin,Total 0.3 mg/dl (0.2-1.3); Blood Urea Nitrogen 12 mg/dl (7-17); Calcium 9.1 mg/dl (8.4-10.2); Carbon Dioxide 24 mmol/L (22.0-30.0); Chloride 105 mmol/L (98-107); Chol/HDL Ratio 3.2 (1-3.5); Cholesterol 186 mg/dl (140-200); Estimated Glomerular Filt Rate 139 ml/min (>60); GFR (African American) 168 ML/MIN (>60); Glucose 87 mg/dl (74-100); HDL Cholesterol 58 mg/dl (40-60); Potassium 4.2 mmoL/L (3.5-5.1); Sodium 137 mmol/L (136-145); Total Protein,Serum 6.8 g/dl (6.3-8.2); Triglycerides 97 mg/dl (30-150); VLDL Cholesterol 19 mg/dL (0-40)
[2024-01-27 20:32] LABS: Direct LDL Cholesterol 110.88 mg/dL (100-129)
[2024-01-27 20:40] LABS: 25-OH Vitamin D, Total 13.8 ng/mL (30-100)
== END 2024-01-27 23:59 | disposition home or self-care (01) ==
LOC: LAB.DROPOF 18:55
PROVIDERS: PCP Nurse Practitioner Family; Visit Provider Nurse Practitioner Family
DX: R73.9 Hyperglycemia, unspecified (principal)
CPT/HCPCS: 80050; 80053; 80061; 82306; 84443; 85025

== ENCOUNTER 2024-07-26 09:48 | Outpatient (CLI) | payer BC, SELFPAY ==
[2024-07-26 18:15] LABS: Basophils # 0.1 K/mm3 (0-0.2); Basophils % 0.5 % (0.1-2.0); Eosinophils # 0.1 K/mm3 (0.0-0.4); Eosinophils % 1.4 % (0.1-12.0); Hematocrit 39.9 % (37.0-47.0); Hemoglobin 12.6 g/dL (12.2-16.2); Lymphocytes # 2.6 K/mm3 (0.7-4.5); Lymphocytes % 25.8 % (10-50); Mean Corpuscular HGB Conc 31.6 g/dL (31.8-35.4); Mean Corpuscular Hemoglobin 27.3 pg (27.0-31.2); Mean Corpuscular Volume 86.6 fl (81-99); Mean Platelet Volume 10.1 fl (7.4-10.4); Monocytes # 0.5 K/mm3 (0.1-1.0); Monocytes % 4.7 % (1.7-9.3); Neutrophils # 6.9 K/mm3 (1.8-7.8); Neutrophils % 67.1 % (37.0-80.0); Platelet Count 341 K/mm3 (142-424); Red Blood Count 4.61 M/mm3 (4.20-5.40); Red Cell Distribution Width 13.4 % (11.5-17.5); White Blood Count 10.2 K/mm3 (4.8-10.8)
[2024-07-26 18:50] LABS: Alanine Aminotransferase 23 U/L (12-78); Albumin Level 3.9 g/dl (3.5-5.0); Albumin/Globulin Ratio 1.3 (1.1-1.8); Alkaline Phosphatase 75 U/L (38-126); Anion Gap 12.4 mEq/L (5-15); Aspartate Amino Transferase 26 U/L (14-36); Bilirubin,Total 0.5 mg/dl (0.2-1.3); Blood Urea Nitrogen 13 mg/dl (7-17); Calcium 9.6 mg/dl (8.4-10.2); Carbon Dioxide 23 mmol/L (22.0-30.0); Chloride 104 mmol/L (98-107); Chol/HDL Ratio 4.3 (1-3.5); Cholesterol 195 mg/dl (140-200); Estimated Glomerular Filt Rate 112 ml/min (>60); GFR (African American) 135 ML/MIN (>60); Globulin 2.9 g/dL (1.3-3.2); Glucose 90 mg/dl (74-100); HDL Cholesterol 45 mg/dl (40-60); Potassium 4.4 mmoL/L (3.5-5.1); Sodium 135 mmol/L (136-145); Total Protein,Serum 6.8 g/dl (6.3-8.2); Triglycerides 107 mg/dl (30-150); VLDL Cholesterol 21 mg/dL (0-40)
[2024-07-26 19:01] LABS: Direct LDL Cholesterol 141.09 mg/dL (100-129)
[2024-07-26 19:15] LABS: 25-OH Vitamin D, Total 80.9 ng/mL (30-100)
[2024-07-26 19:47] LABS: Iron 54 ug/dL (37-170)
[2024-07-26 19:55] LABS: Vitamin B12 515 pg/mL (239-931)
[2024-07-26 19:58] LABS: Total Iron Binding Capacity 431 ug/dL (265-497)
[2024-07-26 20:06] LABS: Folate 4.99 ng/mL; Hemoglobin A1C 5.5 % (4.0-6.0)
[2024-07-26 20:20] LABS: Thyroid Stimulating Hormone 3.66 uIU/mL (0.465-4.68)
[2024-07-26 20:24] LABS: Ferritin 31.6 ng/ml (6.24-137)
[2024-08-02 10:39] LABS: Rheumatoid Factor IGA < 7 U (<7)
== END 2024-07-26 23:59 | disposition home or self-care (01) ==
LOC: LAB.DROPOF 07-27 12:33
PROVIDERS: PCP Nurse Practitioner Family; Visit Provider Nurse Practitioner Family
DX: R73.03 Prediabetes (principal); E88.810 Metabolic syndrome
CPT/HCPCS: 80053; 80061; 82306; 82607; 82728; 82746; 83036; 83540; 83550; 84443; 85025; 86431

== ENCOUNTER 2024-09-22 09:13 | Outpatient (CLI) | payer BC, SELFPAY ==
--- NOTE | 2024-09-22 09:17 | US_ITS ---
PROCEDURE INFORMATION: Exam: US Right Breast, Complete Exam date and time: 09/22/2024 9:29 AM Age: 39 years old Clinical indication: Palpable areas of concern on physical exam by the patient's provider. TECHNIQUE: Imaging protocol: Complete ultrasound of all four quadrants of the right breast and the retroareolar regions, including ultrasound of the axilla when performed. COMPARISON: No relevant prior studies available. FINDINGS: ULTRASOUND: Breast ultrasound findings: In the right breast 1 o'clock axis, 7 cm from the nipple, there is a complicated cyst which measures 0.5 x 0.3 x 0.3 cm. In the right breast 10 o'clock axis, 4 cm from the nipple, there are complicated cysts, the largest that measures 0.6 x 0.2 x 0.3 cm. This is in the area palpable concern according to the patient's provider. No solid masses. No shadowing or distortion. No axillary adenopathy. IMPRESSION: 1. Probably benign complicated cysts in the right breast, including at the palpable area of concern in the right breast 10 o'clock axis, 4 cm from the nipple. Six-month follow-up right breast ultrasound is recommended for close surveillance. 2. A diagnostic mammogram is also recommended given the provided history and the patient's age. 3. Further evaluation of a palpable abnormality should be based on clinical grounds regardless of radiographic findings or lack thereof. ASSESSMENT: BI-RADS Category 0: Incomplete- Need Additional Imaging Evaluation.
[2024-09-22 11:37] LABS: HIV Combo NEGATIVE (Negative)
[2024-09-22 11:57] LABS: Hepatitis C Ab Qual. W/ RFX NEGATIVE (Negative)
== END 2024-09-22 23:59 | disposition home or self-care (01) ==
LOC: RAD 09:13
PROVIDERS: PCP Nurse Practitioner Family; Visit Provider Obstetrics & Gynecology
DX: N63.11 Unspecified lump in the right breast, upper outer quadrant (principal); N63.12 Unspecified lump in the right breast, upper inner quadrant; E66.01 Morbid (severe) obesity due to excess calories; Z68.42 Body mass index [BMI] 45.0-49.9, adult; F41.9 Anxiety disorder, unspecified; G47.33 Obstructive sleep apnea (adult) (pediatric)
CPT/HCPCS: 36415; 76641; 86803; 87389

== ENCOUNTER 2024-09-28 14:16 | Outpatient (CLI) | payer BC, SELFPAY ==
--- NOTE | 2024-09-28 14:21 | MM_ITS ---
PROCEDURE INFORMATION: Exam: Right Diagnostic Breast Tomosynthesis Exam date and time: 09/28/2024 2:29 PM Age: 39 years old Clinical indication: Palpable abnormality upper outer quadrant Right breast; Additional info: Abnormal US of right breast, PT did not locate palpable area TECHNIQUE: Imaging protocol: Right Diagnostic tomosynthesis and 2D mammography including computer-aided detection (CAD) when performed. Unilateral or bilateral exam. COMPARISON: US BREAST RT COMPLETE 09/22/2024 9:29 AM FINDINGS: MAMMOGRAPHY: Breast composition: There are scattered areas of fibroglandular density. Breast mammogram findings: There is no stellate mass, architectural distortion or suspicious microcalcifications to suggest malignancy. No skin thickening or axillary adenopathy. Additional spot compression views of the right breast demonstrate normal overlapping fibroglandular structures. Sonography performed 09/22/2024 demonstrated probably benign subcentimeter cystic change including a subcentimeter probable benign cyst in the area of palpable concern in the right upper outer quadrant IMPRESSION: No mammographic evidence of malignancy. Six-month follow-up targeted right breast ultrasound is recommended to ensure stability of probably benign cystic change.Further evaluation of a palpable abnormality should be based on clinical grounds regardless of radiographic findings or lack thereof. ASSESSMENT: BI-RADS Category 3: Probably benign. Based on the sonogram
== END 2024-09-28 23:59 | disposition home or self-care (01) ==
LOC: RAD 14:17
PROVIDERS: PCP Nurse Practitioner Family; Visit Provider Obstetrics & Gynecology
DX: R92.8 Other abnormal and inconclusive findings on diagnostic imaging of breast (principal)
CPT/HCPCS: 77061; 77065; G0279

== ENCOUNTER 2025-01-17 12:00 | Outpatient (CLI) | payer BC, SELFPAY ==
[2025-01-17 21:10] LABS: Hematocrit 40.4 % (37.0-47.0); Hemoglobin 12.7 g/dL (12.2-16.2); Immature Granulocytes % 0.3 %; Mean Corpuscular HGB Conc 31.4 g/dL (31.8-35.4); Mean Corpuscular Hemoglobin 27.7 pg (27.0-31.2); Mean Corpuscular Volume 88.0 fl (81-99); Nucleated Red Blood Cells % 0 %; Platelet Count 320 K/mm3 (142-424); Red Blood Count 4.59 M/mm3 (4.20-5.40); Red Cell Distribution Width-SD 44.1 fL; White Blood Count 9.0 K/mm3 (4.8-10.8)
[2025-01-17 21:58] LABS: Alanine Aminotransferase 17 U/L (12-78); Albumin Level 4.2 g/dl (3.5-5.0); Albumin/Globulin Ratio 1.4 (1.1-1.8); Alkaline Phosphatase 84 U/L (38-126); Anion Gap 14.3 mEq/L (5-15); Aspartate Amino Transferase 18 U/L (14-36); Bilirubin,Total 0.4 mg/dl (0.2-1.3); Blood Urea Nitrogen 13 mg/dl (7-17); Calcium 9.4 mg/dl (8.4-10.2); Carbon Dioxide 27 mmol/L (22.0-30.0); Chloride 98 mmol/L (98-107); Creatinine,Serum 0.60 mg/dl (0.52-1.04); Estimated Glomerular Filt Rate 112 ml/min (>60); GFR (African American) 135 ML/MIN (>60); Globulin 3.1 g/dL (1.3-3.2); Glucose 98 mg/dl (74-100); Potassium 4.3 mmoL/L (3.5-5.1); Sodium 135 mmol/L (136-145); Total Protein,Serum 7.3 g/dl (6.3-8.2)
[2025-01-17 22:19] LABS: 25-OH Vitamin D, Total 70.3 ng/mL (30-100)
[2025-01-17 22:46] LABS: Vitamin B12 335 pg/mL (239-931)
[2025-01-17 22:57] LABS: Iron 69 ug/dL (37-170)
[2025-01-17 23:07] LABS: Total Iron Binding Capacity 365 ug/dL (265-497)
[2025-01-17 23:08] LABS: Folate 12.20 ng/mL
--- OUTSIDE RECORDS SUMMARY | 2025-01-22 12:02 | XMS_ITS | Patient Health Record ---
Author Organization [facility] Address [address] [place] [address] Care Team Providers Care Sand Shoveler Name Role Phone Selam Haynes Unavailable [phone] Allergies Allergen (clinical drug ingredient) Drug/Non Drug Allergy documented on EMR Reaction Allergy Type Onset Date Status Penicillin hives Drug Allergy Active Results Component Value Reference Range Notes Flu/COVID Rapid Antigen (IH) Reviewed date:08/20/2024 10:07:25 AM Interpretation:Positive Performing Lab: Notes/Report: Positive Flu A positive Negative - Positive Flu B negative Negative - Positive SARS CoV 2 negative Negative - Positive Reason For Referral No Information Medications Medication SIG (Take, Route, Frequency, Duration) Notes Start Date End Date Status Iron (Ferrous Sulfate) Active Wegovy Active Bisoprolol Fumarate Active Ondansetron HCl 4 MG 1 tablet Orally dinah ry 6 hours for 5 days 08/20/2024 Active hydroCHLOROthiazide Active Escitalopram Oxalate Active Oseltamivir Phosphate 75 MG 1 capsule Or ally Twice a day for 5 days 08/20/2024 Active Xyzal Allergy 24HR 5 MG 1 tablet in the evening Orally Once a day Active Social History Tobacco Use: Social History Observation Description Date Details (start date - stop date) Never Smoker NA - NA Tobacco Control (Standard) Question Answer Notes Tobacco use: Nonsmoker Problems Problem Type SNOMED Code ICD Code Onset Dates Problem Status W/U Status Risk Notes Problem Hypertension (27509014) Hypertension (I10) Active confirmed Problem Anxiety (38265723) Anxiety (F41.9) Active confirmed Vital Signs Temperature 99.2 degrees Fahrenheit 08/20/2024 Respiratory Rate 16 /min 08/20/2024 Blood pressure diastolic 76 mm Hg 08/20/2024 Height 065 in 08/20/2024 Blood pressure systolic 132 mm Hg 08/20/2024 Weight 0272 lbs 08/20/2024 BMI 45.26 kg/m2 08/20/2024 Encounters Encounter Location Date Provider Diagnosis [facility] [address] [facility] [address] [place] [address] 08/20/2024 Selam Haynes Encounter for screening for COVID-19 Z11.52 and Influenza A J10.1 Assessments Encounter Date Diagnosis (ICD Code) Assessment Notes Treatment Notes Treatment Clinical Notes Section Notes 08/20/2024 Influenza A (ICD-10 - J10.1) Influenza (Flu): Care Instructions material was published 08/20/2024 Encounter for screening for COVID-19 (ICD-10 - Z11.52) Plan Of Treatment No Information Insurance Providers Payer Name Payer Address Payer Phone Subscriber Number Group Number Insured Name Patient Relationship to Insured Coverage Start Date Coverage End Date GELY [facility] [address] [place] [address] [id number] [place] Jansen Self - patient is the insured Medical (General) History Medical History History ICD Code Hypertension I10 Anxiety F41.9
--- OUTSIDE RECORDS SUMMARY | 2025-01-22 12:02 | XMS_ITS | Clinical Summary ---
Author Organization [facility] Address [address] [place] [address] Care Team Providers Care Dining Car Steward Name Role Phone Unavailable Primary Care Provider Unavailabl e Social History Tobacco Use Types Packs/Day Years Used Date Smoking Tobacco: Never Assessed Comments Unknown Sex and Gender Information Value Date Recorded Sex Assigned at Not on file Legal Sex Female 7:27 PM EDT Gender Identity Not on file Sexual Orientation Not on file Last Filed Vital Signs Vital Sign Reading Time Taken Comments Blood Pressure - - Pulse - - Temperature - - Respiratory Rate - - Oxygen Saturation - - Inhaled Oxygen Concentration - - Weight 89.1 kg (196 lb 8 oz) 11/08/2007 8:56 AM EDT Height 163.8 cm (5' 4.5 ) 11/08/2007 8:56 AM EDT Body Mass Index 33.21 11/08/2007 8:56 AM EDT Plan of Treatment Health Maintenance Due Date Last Done Comments [facility]-Depression Screening 1986 [facility]-/Child/Adol SDOH Screenings 1986 [facility]-Varicella Vaccines (1 of 2 - 13+ 2-dose series) 1999 HPV Vaccines (1 - 3-dose series) 2001 [facility]- SDOH Screenings 2004 [facility]-Adult SDOH Screenings 2004 [facility]-DTaP,Tdap,and Td Vaccines (1 - Tdap) 2005 [facility]-Hepatitis B Vaccines (1 of 3 - 19+ 3-dose series) 2005 [facility]-Pap Smear 11/07/2010 11/08/2007, 11/18/2006, 11/06/2005 [facility]-Cervical Cancer Screening 2016 [facility]-HPV/Cotest 2016 11/08/2007, 11/18/2006, 11/06/2005 [id number] Vaccine ( season) 2024 [facility]-Influenza Vaccine (#1) 2025 [facility]-Zoster Vaccines (1 of 2) 2036 [facility]-HIB Vaccines Aged Out No longer e ligible based on patient's age to complete this topic [facility]-Hepatitis A Vaccines Aged Out No longer eligible based on patient's age to complete this topic [facility]Y-IPV Vaccines Aged Out No longer e ligible based on patient's age to complete this topic [facility]Y-Pneumococcal Vaccine: Pediatrics (0 to 5 Years) and At-Risk Patients (6 to 49 Years) Aged Out No longer eligible b ased on patient's age to complete this topic [facility]Y-Rotavirus Vaccines Aged Out No lo nger eligible based on patient's age to complete this topic Procedures Procedure Name Priority Date/Time Associated Diagnosis Comments CYTO DATA CONVERSION Routine 11/08/2007 12:00 AM EDT from Last 3 Months or Most Recently Relevant to Health Maintenance Results * Cytology (11/08/2007 12:00 AM EDT) 11/08/2007 11/09/2007 8:4 2 AM EDT Narrative SUNQUEST - 11/14/2007 2:20 PM EDT [facility] MR #: [id number] [facility] [address] [place], [place] [address] 1985 (Age: 22) FW Collect Date: 11/08/2007 00:00 Receipt Date: 11/09/2007 08:42 Page 1 DEPARTMENT OF PATHOLOGY AND LABORATORY MEDICINE CYTOPATHOLOGY REPORT Email: [email or web address] ATTENDING MD/Practitioner: BRANDEN Hernandez Service: CONTAINER CRANE OPERATOR Location: [facility] Reported: 11/14/2007 14:20 Collected: 11/08/2007 00:00 INTERPRETATION A. THIN PREP (CERVICAL/VAGINAL): NEGATIVE FOR INTRAEPITHELIAL LESION OR MALIGNANCY. SATISFACTORY FOR EVALUATION; ENDOCERVICAL/ TRANSFORMATION ZONE COMPONENT PRESENT. Electronically Signed Out By CAROLE Phan(ASCP) Dyan James, CAROLE(ASCP) Cervical cytology is a screening test primarily for squamous cancers and precursors and has associated false negative and positive results. New technologies such as liquid based sampling may decrease but will not eliminate all false negative results. Regular screening and follow-up of unexplained clinical signs and symptoms are recommended to minimize false negative results. Please see the ASCCP website (www.[email or web address].org) for followup recommendations. If HPV testing was requested, correlation with the results is suggested (please call Microbiology at [phone] for results). CLINICAL INFORMATION: Menstrual History: Cyclic Date of Last Menstrual Period: 10/25/07 Other Clinical Conditions: Clinical information indicates patient has high risk factor(s). SPECIMEN DESCRIPTION: A: THIN PREP (CERVICAL/VAGINAL) THIN PREP PROCESS CELLULAR ENHANCEMENT ICD: V76.2 CERVIX, SPECIAL SCREENING FOR MALIGNANT NEOPLASM V15.89 OTHER PERSONAL HISTORY PRESENT HAZARDS TO HEALTH F: A; RT IMAGE 73173, RT IMAGE 68285 <CR>, [id number] [facility] SNOMED CODES: A; H2O613 [id number] [id number] In cases where a pathologist has signed out the report, the service has been rendered in part by a resident. The signing pathologist has performed and is responsible for the reported pathologic evaluation. us Amie Marcos APRN LAB PATHOLOGY ORDERABLES Final Result [employer] from Last 3 Months or Most Recently Relevant to Health Maintenance
--- OUTSIDE RECORDS SUMMARY | 2025-01-22 12:02 | XMS_ITS ---
Author Organization Unknown Medications Medication Instructions Effective Dates (start - stop) Status escitalopram 20 MG Oral Tablet 2 989-32-92P96:00:00.000+00 :00 - Completed escitalopram 20 MG Oral Tablet 2 190-09-96I23:00:00.000+00 :00 - Completed hydrochlorothiazide 12.5 MG Oral Tablet 7575-74-60U10:00:00.000+00 :00 - Completed {6 (azithromycin 250 MG Oral Tablet) } Pack 3841-91-76U79:00:00.000+00 :00 - Completed escitalopram 20 MG Oral Tablet 2 697-94-52G56:00:00.000+00 :00 - Completed hydrochlorothiazide 12.5 MG Oral Tablet 1646-78-63Z37:00:00.000+00 :00 - Completed hydrochlorothiazide 12.5 MG Oral Tablet 0336-27-24W57:00:00.000+00 :00 - Completed escitalopram 20 MG Oral Tablet 2 325-63-34L36:00:00.000+00 :00 - Completed spironolactone 50 MG Oral Tablet 0915-92-40V39:00:00.000+00 :00 - Completed - 1760-06-94D57:00 :00.000+00 :00 - Completed hydrochlorothiazide 12.5 MG Oral Tablet 9305-05-89D13:00:00.000+00 :00 - Completed spironolactone 50 MG Oral Tablet 5272-78-58C84:00:00.000+00 :00 - Completed spironolactone 50 MG Oral Tablet 8102-82-32S44:00:00.000+00 :00 - Completed spironolactone 50 MG Oral Tablet 5458-12-49K97:00:00.000+00 :00 - Completed spironolactone 50 MG Oral Tablet 6827-84-57G89:00:00.000+00 :00 - Completed spironolactone 50 MG Oral Tablet 3871-37-74J93:00:00.000+00 :00 - Completed spironolactone 50 MG Oral Tablet 9621-92-95L50:00:00.000+00 :00 - Completed spironolactone 50 MG Oral Tablet 2761-93-26M46:00:00.000+00 :00 - Completed {24 (drospirenone 4 MG Oral Tablet) / 4 (inert ingredients 1 MG Oral Tablet) } Pack [Slynd] 8976-02-55D75:00:00.000+00 :00 - Completed {24 (drospirenone 4 MG Oral Tablet) / 4 (inert ingredients 1 MG Oral Tablet) } Pack [Slynd] 5391-40-29Z50:00:00.000+00 :00 - Completed {24 (drospirenone 4 MG Oral Tablet) / 4 (inert ingredients 1 MG Oral Tablet) } Pack [Slynd] 4473-69-57T32:00:00.000+00 :00 - Completed {24 (drospirenone 4 MG Oral Tablet) / 4 (inert ingredients 1 MG Oral Tablet) } Pack [Slynd] 9075-35-35D49:00:00.000+00 :00 - Completed {24 (drospirenone 4 MG Oral Tablet) / 4 (inert ingredients 1 MG Oral Tablet) } Pack [Slynd] 9842-76-70E21:00:00.000+00 :00 - Completed {24 (drospirenone 4 MG Oral Tablet) / 4 (inert ingredients 1 MG Oral Tablet) } Pack [Slynd] 7611-93-43Z16:00:00.000+00 :00 - Completed {24 (drospirenone 4 MG Oral Tablet) / 4 (inert ingredients 1 MG Oral Tablet) } Pack [Slynd] 8805-78-17W90:00:00.000+00 :00 - Completed spironolactone 50 MG Oral Tablet 8541-20-69Q39:00:00.000+00 :00 - Completed {24 (drospirenone 4 MG Oral Tablet) / 4 (inert ingredients 1 MG Oral Tablet) } Pack [Slynd] 9786-74-32T03:00:00.000+00 :00 - Completed {24 (drospirenone 4 MG Oral Tablet) / 4 (inert ingredients 1 MG Oral Tablet) } Pack [Slynd] 2954-27-61F55:00:00.000+00 :00 - Completed {24 (drospirenone 4 MG Oral Tablet) / 4 (inert ingredients 1 MG Oral Tablet) } Pack [Slynd] 5785-36-42B46:00:00.000+00 :00 - Completed {24 (drospirenone 4 MG Oral Tablet) / 4 (inert ingredients 1 MG Oral Tablet) } Pack [Slynd] 2359-52-85Z27:00:00.000+ :00 - Completed {24 (drospirenone 4 MG Oral Tablet) / 4 (inert ingredients 1 MG Oral Tablet) } Pack [Slynd] 5067-39-83A06:00:00.000+00 :00 - Completed {24 (drospirenone 4 MG Oral Tablet) / 4 (inert ingredients 1 MG Oral Tablet) } Pack [Slynd] 9474-57-24E52:00:00.000+ :00 - Completed {24 (drospirenone 4 MG Oral Tablet) / 4 (inert ingredients 1 MG Oral Tablet) } Pack [Slynd] 8529-24-50X09:00:00.000+ :00 - Completed Patient Care team information Name Category Status Period Participants - - Proposed period not known -
== END 2025-01-17 23:59 | disposition home or self-care (01) ==
LOC: LAB.DROPOF 01-22 12:00
PROVIDERS: PCP Nurse Practitioner Family; Visit Provider Nurse Practitioner Family
DX: R73.03 Prediabetes (principal); D50.9 Iron deficiency anemia, unspecified; E78.5 Hyperlipidemia, unspecified; Z68.30 Body mass index [BMI] 30.0-30.9, adult
CPT/HCPCS: 80053; 82306; 82607; 82746; 83540; 83550; 85025

== ENCOUNTER 2025-01-25 07:36 | Outpatient (CLI) | payer BC, SELFPAY ==
--- OUTSIDE RECORDS SUMMARY | 2025-01-25 07:38 | XMS_ITS ---
Author Organization Unknown Medications Medication Instructions Effective Dates (start - stop) Status escitalopram 20 MG Oral Tablet 2 473-36-90I09:00:00.000+00 :00 - Completed escitalopram 20 MG Oral Tablet 2 205-10-81F61:00:00.000+00 :00 - Completed hydrochlorothiazide 12.5 MG Oral Tablet 8652-33-08X10:00:00.000+00 :00 - Completed {6 (azithromycin 250 MG Oral Tablet) } Pack 9121-56-12O96:00:00.000+00 :00 - Completed escitalopram 20 MG Oral Tablet 2 696-62-43J75:00:00.000+00 :00 - Completed hydrochlorothiazide 12.5 MG Oral Tablet 5249-32-96X40:00:00.000+00 :00 - Completed hydrochlorothiazide 12.5 MG Oral Tablet 9249-17-36G82:00:00.000+00 :00 - Completed escitalopram 20 MG Oral Tablet 2 769-65-42A07:00:00.000+00 :00 - Completed spironolactone 50 MG Oral Tablet 4293-87-94A17:00:00.000+00 :00 - Completed - 3699-07-80I39:00 :00.000+00 :00 - Completed hydrochlorothiazide 12.5 MG Oral Tablet 4110-80-45F54:00:00.000+00 :00 - Completed spironolactone 50 MG Oral Tablet 3529-35-47E44:00:00.000+00 :00 - Completed spironolactone 50 MG Oral Tablet 8064-56-06C34:00:00.000+00 :00 - Completed spironolactone 50 MG Oral Tablet 4213-59-41U78:00:00.000+00 :00 - Completed spironolactone 50 MG Oral Tablet 5159-88-77Y16:00:00.000+00 :00 - Completed spironolactone 50 MG Oral Tablet 8669-49-67R03:00:00.000+00 :00 - Completed spironolactone 50 MG Oral Tablet 2705-06-54T71:00:00.000+00 :00 - Completed spironolactone 50 MG Oral Tablet 5969-20-01Q39:00:00.000+00 :00 - Completed {24 (drospirenone 4 MG Oral Tablet) / 4 (inert ingredients 1 MG Oral Tablet) } Pack [Slynd] 3002-49-25A99:00:00.000+00 :00 - Completed {24 (drospirenone 4 MG Oral Tablet) / 4 (inert ingredients 1 MG Oral Tablet) } Pack [Slynd] 0775-20-99M96:00:00.000+00 :00 - Completed {24 (drospirenone 4 MG Oral Tablet) / 4 (inert ingredients 1 MG Oral Tablet) } Pack [Slynd] 3174-61-85V73:00:00.000+00 :00 - Completed {24 (drospirenone 4 MG Oral Tablet) / 4 (inert ingredients 1 MG Oral Tablet) } Pack [Slynd] 5250-18-25F15:00:00.000+00 :00 - Completed {24 (drospirenone 4 MG Oral Tablet) / 4 (inert ingredients 1 MG Oral Tablet) } Pack [Slynd] 5468-09-38R23:00:00.000+00 :00 - Completed {24 (drospirenone 4 MG Oral Tablet) / 4 (inert ingredients 1 MG Oral Tablet) } Pack [Slynd] 8949-67-65C02:00:00.000+00 :00 - Completed {24 (drospirenone 4 MG Oral Tablet) / 4 (inert ingredients 1 MG Oral Tablet) } Pack [Slynd] 3916-21-07R25:00:00.000+00 :00 - Completed spironolactone 50 MG Oral Tablet 3210-73-55E64:00:00.000+00 :00 - Completed {24 (drospirenone 4 MG Oral Tablet) / 4 (inert ingredients 1 MG Oral Tablet) } Pack [Slynd] 1764-63-04X33:00:00.000+00 :00 - Completed {24 (drospirenone 4 MG Oral Tablet) / 4 (inert ingredients 1 MG Oral Tablet) } Pack [Slynd] 5814-66-60R82:00:00.000+00 :00 - Completed {24 (drospirenone 4 MG Oral Tablet) / 4 (inert ingredients 1 MG Oral Tablet) } Pack [Slynd] 3409-69-14U08:00:00.000+00 :00 - Completed {24 (drospirenone 4 MG Oral Tablet) / 4 (inert ingredients 1 MG Oral Tablet) } Pack [Slynd] 7406-49-15A45:00:00.000+ :00 - Completed {24 (drospirenone 4 MG Oral Tablet) / 4 (inert ingredients 1 MG Oral Tablet) } Pack [Slynd] 7542-12-58L28:00:00.000+00 :00 - Completed {24 (drospirenone 4 MG Oral Tablet) / 4 (inert ingredients 1 MG Oral Tablet) } Pack [Slynd] 2894-79-30I60:00:00.000+ :00 - Completed {24 (drospirenone 4 MG Oral Tablet) / 4 (inert ingredients 1 MG Oral Tablet) } Pack [Slynd] 5672-57-04Q90:00:00.000+ :00 - Completed Patient Care team information Name Category Status Period Participants - - Proposed period not known -
--- OUTSIDE RECORDS SUMMARY | 2025-01-25 07:38 | XMS_ITS | Clinical Summary ---
Author Organization [facility] Address [address] [place] [address] Care Team Providers Care Results Engineer Name Role Phone Unavailable Primary Care Provider [...] Date Last Done Comments [facility]-Depression Screening 1986 [facility]-Infant/Child/Adol SDOH Screenings 1986 [facility]-Varicella Vaccines (1 of 2 - 13+ 2-dose series) 1999 HPV Vaccines (1 - 3-dose series) 2001 [facility]- SDOH Screenings 2004 [facility]-Adult SDOH Screenings 2004 [facility]Y-DTaP,Tdap,and Td Vaccines (1 - Tdap) 2005 [facility]-Hepatitis B Vaccines (1 of 3 - 19+ 3-dose series) 2005 [facility]-Pap Smear 11/07/2010 11/08/2007, 11/18/2006, 11/06/2005 [facility]-Cervical Cancer Screening 2016 [facility]-HPV/Cotest 2016 11/08/2007, 11/18/2006, 11/06/2005 [id number] Vaccine ( season) 2024 [facility]-Influenza Vaccine (#1) [...] Narrative SUNQUEST - 11/14/2007 2:20 PM EDT [facility] MR #: [id number] [facility] [address] [place], [place] [address] 1985 (Age: 22) FW Collect Date: 11/08/2007 00:00 Receipt Date: 11/09/2007 08:42 Page 1 DEPARTMENT OF PATHOLOGY AND LABORATORY MEDICINE CYTOPATHOLOGY REPORT Email: [email or web address] ATTENDING MD/Practitioner: BRANDEN Hernandez Service: ASSOCIATE PROFESSOR OF ARCHAEOLOGY Location: [facility] Reported: 11/14/2007 14:20 Collected: 11/08/2007 00:00 INTERPRETATION [...] results is suggested (please call Microbiology at [phone] for results). CLINICAL INFORMATION: Menstrual History: Cyclic Date of Last Menstrual Period: 10/25/07 Other Clinical Conditions: Clinical information indicates patient has high risk factor(s). SPECIMEN DESCRIPTION: A: THIN PREP (CERVICAL/VAGINAL) THIN PREP PROCESS CELLULAR ENHANCEMENT ICD: V76.2 CERVIX, SPECIAL SCREENING FOR MALIGNANT NEOPLASM V15.89 OTHER PERSONAL HISTORY PRESENT HAZARDS TO HEALTH F: A; RT IMAGE 97517, RT IMAGE 45925 <CR>, [address] [facility] SNOMED CODES: A; I2O784 L67500 [id number] [id number] In cases where a pathologist has signed out the report, the service has been rendered in part by a resident. The signing pathologist has performed and is responsible for the reported pathologic evaluation. us Amie Marcos APRN LAB PATHOLOGY ORDERABLES Final Result [employer] from Last 3 Months or Most Recently Relevant to Health Maintenance
--- OUTSIDE RECORDS SUMMARY | 2025-01-25 07:38 | XMS_ITS | Patient Health Record ---
Author Organization [facility] Address [address] [place] [address] Care Team Providers Care Rubber Printing Machine Operator Name Role Phone Selam Haynes Unavailable [phone] Allergies Allergen (clinical drug ingredient) Drug/Non Drug [...] Status W/U Status Risk Notes Problem Hypertension (85073983) Hypertension (I10) Active confirmed Problem Anxiety (20381315) Anxiety (F41.9) Active confirmed Vital Signs Temperature 99.2 degrees Fahrenheit 08/20/2024 Respiratory Rate 16 /min 08/20/2024 Blood pressure diastolic 76 mm Hg 08/20/2024 Height 065 in 08/20/2024 Blood pressure systolic 132 mm Hg 08/20/2024 Weight 0272 lbs 08/20/2024 BMI 45.26 kg/m2 08/20/2024 Encounters Encounter Location Date Provider Diagnosis [facility] [address] [facility] [address] [place] [address] 08/20/2024 Selam Haynes Encounter for screening for [...] Coverage Start Date Coverage End Date [facility]ELY [facility] [address] [place] [address] [phone] [id number] [place] Jansen Self - patient is the insured Medical (General) History Medical History History ICD Code Hypertension I10 Anxiety F41.9
[2025-01-25 08:31] LABS: Cholesterol 166 mg/dl (140-200); HDL Cholesterol 49 mg/dl (40-60); Triglycerides 157 mg/dl (30-150)
[2025-01-25 09:15] LABS: Hemoglobin A1C 6.7 % (4.0-6.0)
== END 2025-01-25 23:59 | disposition home or self-care (01) ==
LOC: LAB 07:36
PROVIDERS: PCP Nurse Practitioner Family; Visit Provider Nurse Practitioner Family
DX: E78.5 Hyperlipidemia, unspecified (principal); R73.03 Prediabetes
CPT/HCPCS: 36415; 80061; 83036

== ENCOUNTER 2025-03-29 15:19 | Outpatient (CLI) | payer BC, SELFPAY ==
--- OUTSIDE RECORDS SUMMARY | 2025-03-18 07:15 | XMS_ITS ---
Author Organization [facility] Address [address] [place] [id number] Care Team Providers Care Electrical Engineering Director Name Role Phone Selam Haynes Unavailable [phone] Allergies Allergen (clinical drug ingredient) Drug/Non Drug [...] 03/18/2025 Encounters Encounter Location Date Provider Diagnosis [facility] [address] [facility] [address] [place] [address] 03/18/2025 Selam Velizhusam Negative depression screening Z13.31 [...] * Rajeev GONZALEZmarcieDOB:1985 ( 39 yo F)Acc No.[id number]:03/18/2025 Progress Notes Patient: [place] FATIMA Provider: Roni Haynes :1985 A ge:39 Y S ex:Female Date:03/18/2025 Address:[address] [place], [place] [id number] Subjective: * Chief Complaints: * 1 . [...] * Procedure Codes: C ODER Sending to Curatorial Assistant for Code Review * Follow Up: F ollow up in 2-3 days if s/s persist or worsen * Billing Information: * Visit Code: * Procedure Codes: MANAGER RESPIRATORY Sending to Curatorial Assistant for Code Review. Care Plan Details* * Sign off status: Completed true * Provider: Roni Haynes Date: 03/18/2025 Generated for Bebeto torres/Kimberley/Crys on: 0 03/29/2025 02:21 PM CDT History and Physical Notes * HPI [...]
--- OUTSIDE RECORDS SUMMARY | 2025-03-27 08:30 | XMS_ITS | Encounter Summary ---
Author Organization [facility] Address [address] [place] [address] Phone [email or web address] Care Team Providers Care Supervisor Asbestos Textile Name Role Phone MayankLamont morrow Primary Care Provider Unavailabl e Reason for Visit * Reason Comments EAR / EYE / NOSE / THROAT ISSUE Encounter Details Date Type Department Care Team (Late st Contact Info) Description 03/27/2025 8:30 AM EDT Office Visit [facility] [address] [facility] [address] [facility] [place] [address] Shanua Mullins, TY [address] [facility] [address] [place] [address] Acute suppurative otitis media of left ear without spontaneous rupture of tympanic membrane, recurrence not specified (Primary Dx); Allergic rhinitis, unspecified seasonality, unspecified trigger Social History Tobacco Use Types Packs/Day Years Used Date Smoking Tobacco: Former Cigarettes 0.3 7 2 009 - 2016 Passive Smoke Exposure: Never Smokeless Tobacco: Never Tobacco Cessation:Counseling Given: Not Answered Intimate Partner Violence Answer Date R ecorded Insults You Not on file 10/31/2020 Threatens You Not on file 10/31/2020 Screams at You Not on file 10/31/2020 Physically Hurt Not on file 10/31/2020 Intimate Partner Violence Score Not on file 10/31/2020 Stress Answer Date Recorded Stress in your Life Not on file 05/24/2024 Dealing with Stress 3 05/24/2024 Comments Unknown Sex and Gender Information Value Date Recorded Sex Assigned at Not on file Legal Sex Female 6:20 AM CDT Gender Identity Not on file Sexual Orientation Not on file documented as of this encounter Last Filed Vital Signs Vital Sign Reading Time Taken Comments Blood Pressure 125/81 03/27/2025 8:27 AM EDT Pulse 84 03/27/2025 8:27 AM EDT Temperature 36.6 C (97.9 F) 03/27/2025 8:27 AM EDT Respiratory Rate 18 03/27/2025 8:27 AM EDT Oxygen Saturation - - Inhaled Oxygen Concentration - - Weight 124 kg (274 lb) 03/27/2025 8:27 AM EDT Height 165.1 cm (5' 5 ) 03/27/2025 8:27 AM EDT Body Mass Index 45.6 03/27/2025 8:27 AM EDT documented in this encounter Progress Notes * Shauna Mullins, LEAFLET DISTRIBUTOR - 03/27/2025 8:30 AM EDT Allergies Chart Review Health Maintenance History Immunizations Screenings Search Synopsis This Visit Vital Signs Assessment & Plan Acute suppurative otitis media of left ear without spontaneous rupture of tympanic membrane, recurrence not specified PCN allergy with hives, amoxicillin CI. Will treat with 5 days of doxycycline as incomplete resolution with azithromycin. Call or RTC if no improvement within 48-72 hours. Continue tylenol or ibuprofen for pain. Orders: doxycycline (VIBRAMYCIN) 100 MG capsule; Take 1 capsule (100 mg total) by mouth in the morning and 1 capsule (100 mg total) in the evening. Do all this for 5 days. Take with a glass of water and don't lie down for at least 30 mins. Allergic rhinitis, unspecified seasonality, unspecified trigger Continue Xyzal, add fluticasone nasal spray and saline sinus rinse. Follow-up: OFFICE VISIT FOLLOW UP Return in approximately 1 Week (around 04/03/2025) if symptoms worsen or failto improve. Subjective [place] Jansne is a 40 y.o. Reason(s) for visit on 03/27/2025: EAR / EYE / NOSE / THROAT ISSUE Comments (if any): HPI: Left ear pain: onset about 2 weeks ago; seen at [facility] treated for AOM with antibiotic and steroid; she's finished the treatment and initially improvement and has started to have pain again inthe last few days. Having some nasal congestion as well. Pain with jaw movement. No fever, chills, fatigue. Tylenol hasn't been effective for pain. Review of Systems Constitutional: Positive for fatigue. Negative for appetite change, chills and fever. HENT: Positive for congestion, ear pain, postnasal drip and rhinorrhea. Negative for ear discharge,facial swelling, sinus pressure, sinus pain, sneezing and sore throat. Eyes: Negative for itching. Respiratory: Positive for cough. Negative for shortness of breath and wheezing. Dry cough Cardiovascular: Negative for chest pain. Gastrointestinal: Negative for abdominal pain, diarrhea, nausea and vomiting. Musculoskeletal: Negative for myalgias. Neurological: Negative for dizziness and headaches. The following portions of the patient's chart were reviewed by me during this encounter and updatedas appropriate: Tobacco Allergies Meds Problems Med Hx Surg Hx Objective Visit Vitals BP 125/81 (BP Location: Right arm, Patient Position: Sitting, BP Cuff Size: Large adult) Pulse 84 Temp 97.9 ??F (Skin) Resp 18 Ht 5' 5 Wt 274 lb BMI 45.60 kg/m?? Smoking Status Former BSA 2.38 m?? Physical Exam Vitals reviewed. Constitutional: General: She is not in acute distress. Appearance: Normal appearance. She is not ill-appearing. HENT: Head: Normocephalic and atraumatic. Right Ear: Hearing, tympanic membrane, ear canal and external ear normal. Left Ear: Hearing, ear canal and external ear normal. No drainage. A middle ear effusion is present. No mastoid tenderness. Tympanic membrane is erythematous and bulging. Tympanic membrane is not perforated. Nose: Congestion present. No rhinorrhea. Right Sinus: No maxillary sinus tenderness or frontal sinus tenderness. Left Sinus: No maxillary sinus tenderness or frontal sinus tenderness. Mouth/Throat: Lips: [place]. Mouth: Mucous membranes are moist. Pharynx: Posterior oropharyngeal erythema and postnasal drip present. No oropharyngeal exudate. Eyes: Conjunctiva/sclera: Conjunctivae normal. Cardiovascular: Rate and Rhythm: Normal rate and regular rhythm. Heart sounds: Normal heart sounds. Pulmonary: Effort: Pulmonary effort is normal. Breath sounds: Normal breath sounds. Musculoskeletal: Cervical back: Normal range of motion and neck supple. Lymphadenopathy: Cervical: No cervical adenopathy. Skin: General: Skin is warm and dry. Neurological: General: No focal deficit present. Mental Status: She is alert and oriented to person, place, and time. Psychiatric: Mood and Affect: Mood normal. Behavior: Behavior normal. Shauna Harpreet, LEAFLET DISTRIBUTOR 03/27/2025 documented in this encounter Miscellaneous Notes * Assessment & Plan Note - Shauna Mullins APRN - 03/27/2025 8:30 AM EDT Associated Problem(s): Seasonal allergies Continue Xyzal, add fluticasone nasal spray and saline sinus rinse. documented in this encounter Plan of Treatment Not on file documented as of this encounter Visit Diagnoses Diagnosis Acute suppurative otitis media of left ear without spontaneous rupture of tympanic membrane, recurrence not specified- Primary Allergic rhinitis, unspecified seasonality, unspecified trigger documented in this encounter Care Teams Supervisor Asbestos Textile Relationship Specialty Start Date End Date Lamont Manrique, RADHA [address] PCP - General Back End Web Developer 03/27/25 documented as of this encounter
--- NOTE | 2025-03-29 15:22 | US_ITS ---
PROCEDURE INFORMATION: Exam: US Right Breast, Complete Exam date and time: 03/29/2025 3:30 PM Age: 40 years old Clinical indication: Follow-up of cystic changes in the right breast. TECHNIQUE: Imaging protocol: Complete ultrasound of all four quadrants of the right breast and the retroareolar regions, including ultrasound of the axilla when performed. COMPARISON: US BREAST RT COMPLETE 09/22/2024 9:29 AM FINDINGS: ULTRASOUND: Breast ultrasound findings: Overall, the anechoic cystic changes in the right breast at the 10 o'clock axis, 4 cm from the nipple appears stable since 09/22/2024. No change in the cystic area at 2 o'clock, 5 cm from the nipple. These areas are considered benign given today's imaging. There is a questionable hypoechoic area with echogenic rim in the right breast 9 o'clock axis, 2 cm from the nipple that was not present on prior ultrasound of 09/22/2024. This measures 0.3 x 0.3 cm and is considered indeterminate. IMPRESSION: 1. New, indeterminate hypoechoic area measuring 0.3 cm at the 9 o'clock axis, 2 cm from the nipple. This has an echogenic rim. Ultrasound-guided needle biopsy is recommended for this finding. A diagnostic mammogram for correlation at this time should also be considered. 2. The cystic areas in the right breast 10 o'clock axis and 2 o'clock axis are considered benign. ASSESSMENT: BI-RADS Category 4: Suspicious.
--- OUTSIDE RECORDS SUMMARY | 2025-03-29 15:22 | XMS_ITS | Clinical Summary ---
Author Organization [facility] Address [address] [place] [address] Care Team Providers Care Legal Executive Assistant Name Role Phone Unavailable Primary Care Provider [...] of 2 - 13+ 2-dose series) 1999 [facility]- SDOH Screenings 2004 [facility]-Adult SDOH Screenings 2004 [facility]-DTaP,Tdap,and Td Vaccines (1 - Tdap) 2005 [facility]-Hepatitis B Vaccines (1 of 3 - 19+ 3-dose series) 2005 [facility]-Pap Smear 11/07/2010 11/08/2007, 11/18/2006, 11/06/2005 HPV Vaccines (1 - 3-dose SCDM series) 2013 [facility]-Cervical Cancer Screening 2016 [facility]-HPV/Cotest 2016 11/08/2007, 11/18/2006, 11/06/2005 [facility]-BAHLT-47 Vaccine ( season) 2025 [facility]-Influenza Vaccine (#1) 2025 [facility]-Zoster Vaccines (1 [...] Narrative SUNQUEST - 11/14/2007 2:20 PM EDT [facility] MR #: [id number] [facility] [address] [place], [place] [address] 1985 (Age: 22) FW Collect Date: 11/08/2007 00:00 Receipt Date: 11/09/2007 08:42 Page 1 DEPARTMENT OF PATHOLOGY AND LABORATORY MEDICINE CYTOPATHOLOGY REPORT Email: [email or web address] [phone] ATTENDING MD/Practitioner: BRANDEN Hernandez Service: AVAYA ENGINEER Location: [facility] Reported: 11/14/2007 14:20 Collected: 11/08/2007 00:00 INTERPRETATION [...] results is suggested (please call Microbiology at [phone] for results). CLINICAL INFORMATION: Menstrual History: Cyclic Date of Last Menstrual Period: 10/25/07 Other Clinical Conditions: Clinical information indicates patient has high risk factor(s). SPECIMEN DESCRIPTION: A: THIN PREP (CERVICAL/VAGINAL) THIN PREP PROCESS CELLULAR ENHANCEMENT ICD: V76.2 CERVIX, SPECIAL SCREENING FOR MALIGNANT NEOPLASM V15.89 OTHER PERSONAL HISTORY PRESENT HAZARDS TO HEALTH F: A; RT IMAGE [id number], RT IMAGE [id number] <CR>, [id number] [facility] SNOMED CODES: A; [id number] In cases where a pathologist has signed out the report, the service has been rendered in part by a resident. The signing pathologist has performed and is responsible for the reported pathologic evaluation. us Amie Marcos APRN LAB PATHOLOGY ORDERABLES Final Result SUNQUEST from Last 3 Months or Most Recently Relevant to Health Maintenance
--- OUTSIDE RECORDS SUMMARY | 2025-03-29 15:22 | XMS_ITS | Patient Health Record ---
Author Organization [facility] Address [address] [place] [address] Care Team Providers Care Hot Mill Roller Name Role Phone Selam Haynes Unavailable [phone] Allergies Allergen (clinical drug ingredient) Drug/Non Drug [...] Duration) Notes Start Date End Date Status Xyzal Allergy 24HR 5 MG 1 tablet in the evening Orally Once a day Active Azithromycin 250 MG take 2 tablets on day 1 and then 1 tablet daily until complete Orally daily; Duration: 5 days 03/18/2025 Active Escitalopram Oxalate Active Bisoprolol Fumarate Active hydroCHLOROthiazide Active Wegovy Active Iron (Ferrous Sulfate) Active Oseltamivir Phosphate 75 MG 1 capsule Or ally Twice a day; Duration: 5 days 08/20/2024 Not-Taking Ondansetron HCl 4 MG 1 tablet Orally every 6 hours; Duration: 5 days 08/20/2024 Not-Taking Social History Tobacco Use: Social History Observation Description Date Details (start date - stop date) Never Smoker NA - NA Tobacco Control (Standard) Question Answer Notes Tobacco use: Nonsmoker AUDIT-C (Standard) Question Answer Notes Did you have a drink containing alcohol in the p ast year? No Points 0 Interpretation Negative Problems Problem Type SNOMED Code ICD Code Onset Dates Problem Status W/U Status Risk Notes Problem Anxiety (72515276) Anxiety (F41.9) Active confirmed Problem Hypertension (63139422) Hypertension (I10) Active confirmed Vital Signs Temperature 97.8 degrees Fahrenheit 03/18/2025 Respiratory Rate 16 /min 03/18/2025 Oximetry 97 03/18/2025 Blood pressure diastolic 78 mm Hg 03/18/2025 Height 65 in 03/18/2025 Blood pressure systolic 118 mm Hg 03/18/2025 Weight 268.8 lbs 03/18/2025 BMI 44.73 kg/m2 03/18/2025 Encounters Encounter Location Date Provider Diagnosis [facility] [address] [facility] [address] [place] [id number] 08/20/2024 Selam Haynes Encounter for screening for COVID-19 Z11.52 and Influenza A J10.[address] [place] [address] [address] [facility] [address] [place] [address] 03/18/2025 Selam Haynes Negative depression screening Z13.31 and Acute otitis media, left H66.92 Assessments Encounter Date Diagnosis (ICD Code) Assessment Notes Treatment Notes Treatment Clinical Notes Section Notes 08/20/2024 Influenza A (ICD-10 - J10.1) Influenza (Flu): Care Instructions material was published 08/20/2024 Encounter for screening for COVID-19 (ICD-10 - Z11.52) 03/18/2025 Acute otitis media, left (ICD-10 - H66.92) Ear Infection (Otitis Media): Care Instructions material was published 03/18/2025 Negative depression screening (ICD-10 - Z13.31) Plan Of Treatment No Information Insurance Providers Payer Name Payer Address Payer Phone Subscriber Number Group Number Insured Name Patient Relationship to Insured Coverage Start Date Coverage End Date [facility] [address] [place] [address] [id number] [place] Jansen Self - patient is the insured Medical (General) History Medical History History ICD Code Hypertension I10 Anxiety F41.9 Surgical History Surgery Date(Month/Year) gallbladder [facility] Hospitalization History Reason Date(Month/Year) as above
--- OUTSIDE RECORDS SUMMARY | 2025-03-29 15:22 | XMS_ITS | Clinical Summary ---
Author Organization [facility] Address [address] [place] [id number] Phone [email or web address] Care Team Providers Care Cae Engineer Name Role Phone Lamont Manrique Primary Care Provider Unavailabl e Allergies Active Allergy Reactions Criticality Noted Date Comments Penicillins Hives 03/27/2025 Medications Semaglutide-Weig ht Management (Wegovy 2.4 MG/0.75ML SC) 2.4 MG/0.75ML solution auto-injector Inject 2.4 mg under the skin per week. 03/07/2025 Active Tri-Linyah 0.18/0.215/0.25 MG-35 MCG per tablet Take 1 tablet by mouth 1 (one) time each day. 03/07/2025 Active levocetirizine (Xyzal Allergy 24HR) 5 MG tablet Take 5 mg by mouth 1 (one) time each day in the evening. Active hydroCHLOROthiaz magdalene 12.5 MG tablet Take 12.5 mg by mouth 1 (one) time each day. 01/24/2025 Active bisoprolol (ZEBETA) 5 MG tablet Take 5 mg by mouth 1 (one) time each day. 01/22/2025 Active Ferrous Sulfate Dried (FERROUS SULFATE IRON PO) Take 1 tablet by mouth 1 (one) time each day. Active escitalopram (LEXAPRO) 20 MG tablet Take 20 mg by mouth 1 (one) time each day. 01/17/2025 Active doxycycline (VIBRAMYCIN) 100 MG capsuleIndicatio ns:Acute suppurative otitis media of left ear without spontaneous rupture of tympanic membrane, recurrence not specified Take 1 capsule (100 mg total) by mouth in the morning and 1 capsule (100 mg total) in the evening. Do all this for 5 days. Take with a glass of water and don't lie down for at least 30 mins. 10 capsule 03/27/2025 04/01/20 25 Active Active Problems Problem Noted Date Diagnosed Date Anxiety 03/27/2025 Hypertension 03/27/2025 Seasonal allergies 03/27/2025 Assessment & Plan (03/27/2025 8:54 AM EDT): Continue Xyzal, add fluticasone nasal spray and saline sinus rinse. Encounters Date Type Department Care Team Description 03/27/2025 8:30 AM EDT Office Visit [facility] [address] [facility] [address] [facility] [place] [address] Shauna Mullins APRN Acute suppurative otitis media of left ear without spontaneous rupture of tympanic membrane, recurrence not specified (Primary Dx); Allergic rhinitis, unspecified seasonality, unspecified trigger from Last 3 Months Social History Tobacco Use Types Packs/Day Years [...] Mass Index 45.6 03/27/2025 8:27 AM EDT Plan of Treatment Health Maintenance Due Date Last Done Comments Cervical Cancer Screening Combo 1986 Dental Cleaning/Exam 1986 HIV Screening 1986 HPV / Cotest 1986 Hepatitis C Screening 1986 Pap Testing 1986 HPV Immunization (1 - 2-dose series) 1997 Annual Preventive Exam 2004 Hep B Infection Screening - Triple Screen 2004 Hepatitis B Immunization (1 of 3 - 19+ 3-dose series) 2005 Tetanus Diphtheria and Pertussis Immunization (1 - Tdap) 2005 Covid-19 Immunization ( - season) 2025 04/30/2021, 09/08/2020, 08/14/2020 Influenza Immunization (#1) 03/19/202504/18, 07/22/2023, 06/30/2022, Additional history exists HIB Immunization Aged Out No longer e ligible based on patient's age to complete this topic Hepatitis A Immunization Aged Out No longer eligible based on patient's age to complete this topic Pneumococcal: Ped (0 to 5 Yrs) and At-Risk Member (6 to 64 Yrs) Aged Out No longer eligible based on patient's age to complete this topic Polio Immunization Aged Out No longer eligible based on patient's age to complete this topic Varicella Immunization Aged Out No lo nger eligible based on patient's age to complete this topic Insurance [employer] NO COPAY NB Care Teams Cae Engineer Relationship Specialty [place] [address] PCP - General Traction Power Engineer 03/27/25
== END 2025-03-29 23:59 | disposition home or self-care (01) ==
LOC: RAD 15:19
PROVIDERS: PCP Nurse Practitioner Family; Visit Provider Obstetrics & Gynecology
DX: R92.8 Other abnormal and inconclusive findings on diagnostic imaging of breast (principal); N60.11 Diffuse cystic mastopathy of right breast
CPT/HCPCS: 76641

== ENCOUNTER 2025-04-16 10:24 | Outpatient (CLI) | payer BC, SELFPAY ==
--- OUTSIDE RECORDS SUMMARY | 2025-03-18 07:15 | XMS_ITS ---
Author Organization [facility] Address [address] [place] [id number] Care Team Providers Care Reel Fed Printer Name Role Phone Selam Haynes Unavailable [phone] Allergies Allergen (clinical drug ingredient) Drug/Non Drug Allergy documented on EMR Reaction Allergy Type Onset Date Status Penicillin hives Drug Allergy Active REASON FOR VISIT not feeling well Medications Medication SIG (Take, Route, Frequency, Duration) Notes Start Date End Date Status Azithromycin 250 MG take 2 tablets on day 1 and then 1 tablet daily until complete Orally daily; Duration: 5 days 03/18/2025 Active predniSONE 20 MG 1 tablet with food or milk Orally every 12 hours; Duration: 5 days 03/18/2025 03/23/2025 Active Iron (Ferrous Sulfate) Active Oseltamivir Phosphate 75 MG 1 capsule Or ally Twice a day; Duration: 5 days 08/20/2024 Not-Taking Ondansetron HCl 4 MG 1 tablet Orally every 6 hours; Duration: 5 days 08/20/2024 Not-Taking Xyzal Allergy 24HR 5 MG 1 tablet in the evening Orally Once a day Active Escitalopram Oxalate Active Bisoprolol Fumarate Active hydroCHLOROthiazide Active Wegovy Active Social History Tobacco Use: Social History Observation Description Date Details (start date - stop date) Never Smoker NA - NA Tobacco Control (Standard) Question Answer Notes Tobacco use: Nonsmoker AUDIT-C (Standard) Question Answer Notes Did you have a drink containing alcohol in the p ast year? No Points 0 Interpretation Negative Vital Signs Temperature 97.8 degrees Fahrenheit 03/18/20 25 Respiratory Rate 16 /min 03/18/2025 Blood pressure systolic 118 mm Hg 03/18/20 25 Blood pressure diastolic 78 mm Hg 025 Height 65 in 03/18/2025 Weight 268.8 lbs 03/18/2025 BMI 44.73 kg/m2 03/18/2025 Oximetry 97 03/18/2025 Encounters Encounter Location Date Provider Diagnosis [facility] [address] [facility] [address] [place] [address] 03/18/2025 Selam Velizhusam Negative depression screening Z13.31 and Acute otitis media, left H66.92 Assessments Encounter Date Diagnosis (ICD Code) Assessment Notes Treatment Notes Treatment Clinical Notes Section Notes 03/18/2025 Negative depression screening (ICD-10 - Z13.31) 03/18/2025 Acute otitis media, left (ICD-10 - H66.92) Ear Infection (Otitis Media): Care Instructions material was published Plan Of Treatment Medication Medication Name Sig Start Date Stop Date Notes Azithromycin 250 MG take 2 tablets on da y 1 and then 1 tablet daily until complete Orally daily; Duration: 5 days 03/18/2025 predniSONE 20 MG 1 tablet with food o r milk Orally every 12 hours; Duration: 5 days 03/18/2025 03/23/2025 Treatment Notes Assessment Notes Acute otitis media, left Ear Infection ( Otitis Media): Care Instructions material was published Next Appt Details Follow Up: Follow up in 2-3 days if s/s persist or worsen, Reason: Progress Notes * Rajeev GONZALEZmarcieDOB:1985 ( 39 yo F)Acc No.[id number]:03/18/2025 Progress Notes Patient: [place] FATIMA Provider: Roni Haynes :1985 A ge:39 Y S ex:Female Date:03/18/2025 Address:[address] [place], [place] [id number] Subjective: * Chief Complaints: * 1 . Not feeling well. * HPI: D epression/Anxiety Screening: PHQ-2 (2015 Edition) L ittle interest or pleasure in doing things? N ot at all, F eeling down, depressed, or hopeless? N ot at all, T otal Score 0 . D epression Screening D epression Screening Findings N egative. PT presents with complaints of left side jaw pain that started over a week ago. denies any fever or chills. states that her teeth don't feel in pain. also endorses nasal drainage as well. states that she has tried advil allergy and tylenol prior to arrival for symptoms without relief. * ROS: C ONSTITUTIONAL: no c hills. n o f ever. E ARS: ear pain y es, l eft ear. n o s ensation of fullness. N OSE: congestion y es. d rainage y es. M OUTH AND THROAT: no s ore throat. R ESPIRATORY: no c ough. * Medical History: H ypertension, Anxiety. * Surgical History: W isdom Tooth , gallbladder . * Hospitalization/Major Diagno stic Procedure: a s above . * Family History: F ather: , diagnosed with Diabetes. M other: alive, diagnosed with Cancer. 1 brother(s) , 1 sister(s) - healthy. . * Social History: D rug/Alcohol: A SEKOU-C (Standard) D id you have a drink containing alcohol in the past year? N o, P oints 0 , I nterpretation N egative. T obacco Use: T obacco Control (Standard) T obacco use: N onsmoker. * Medications: T aking Xyzal Allergy 24HR 5 MG Tablet 1 tablet in the evening Orally Once a day , Taking Escitalopram Oxalate , Taking Bisoprolol Fumarate , Taking hydroCHLOROthiazide , Taking Wegovy , Taking Iron (Ferrous Sulfate) , Not-Taking Oseltamivir Phosphate 75 MG Capsule 1 capsule Orally Twice a day , Not-Taking Ondansetron HCl 4 MG Tablet 1 tablet Orally every 6 hours , Medication List reviewed and reconciled with the patient * Allergies: P enicillin: hives - Allergy. Objective: * Vitals: T emp:97.8, Pulse:85, RR:16, BP:118/78, Pain (at time of visit):01/25, LNMP: a week ago, Ht: 65, Wt: 268.8, BMI:44.73, Pulse Ox:97. * Examination: F ocused Exam: GENERAL: a lert and oriented x 4, no acute distress. EARS: l eft, external canal w/o redness, swelling, discharge, TM dull right,, external canal w/o redness, swelling, discharge, TM intact, pearly chino, landmarks visualized. NOSE - -MUCOSA- -, boggy mucosa. MOUTH AND THROAT: - -LIPS- -, lips pink, moist, - -ORAL MUCOSA- -, oral mucosa pink, moist, w/o lesions or discolorations, - -PHARYNX- -, pharynx pink, moist, w/o infection, - -TONSILS- -, no tonsillar enlargement, no exudate. Assessment: * Assessment: 1. A cute otitis media, left - H66.92 (Primary) 2 . N egative depression screening - Z13.31 Plan: * Treatment: * Procedure Codes: C ODER Sending to Forest Pathology Teacher for Code Review * Follow Up: F ollow up in 2-3 days if s/s persist or worsen * Billing Information: * Visit Code: * Procedure Codes: BULB TESTER Sending to Forest Pathology Teacher for Code Review. Care Plan Details* * Sign off status: Completed true * Provider: Roni Haynes Date: 0 03/18/2025 Generated for Bebeto torres/Kimberley/Crys on: 0 04/16/2025 09:26 AM CDT History and Physical Notes * HPI (History of Present Illness) Category Sub-Category Detail Notes Category Not es Depression/Anxiety Screening Depression Screening Depression Screening Findings: Negative PT presents with complaints of left side jaw pain that started over a week ago. denies any fever or chills. states that her teeth don't feel in pain. also endorses nasal drainage as well. states that she has tried advil allergy and tylenol prior to arrival for symptoms without relief. PHQ-2 (2015 Edition) Little interest or pleasure in doing things?: Not at all Feeling down, depressed, or hopeless?: N ot at all Total Score: 0 Examination Category Sub-Category Detail Notes Category Not es Focused Exam EARS: left, external c anal w/o redness, swelling, discharge, TM dull right,, external canal w/o redness, swelling, discharge, TM intact, pearly chino, landmarks visualized NOSE - -MUCOSA- -, boggy mucosa MOUTH AND THROAT: - -LIPS- -, lips pin k, moist, - -ORAL MUCOSA- -, oral mucosa pink, moist, w/o lesions or discolorations, - -PHARYNX- -, pharynx pink, moist, w/o infection, - -TONSILS- -, no tonsillar enlargement, no exudate GENERAL: alert and oriented x 4, no acute distress
--- OUTSIDE RECORDS SUMMARY | 2025-03-27 08:30 | XMS_ITS | Encounter Summary ---
Author Organization [facility] Address [address] [place] [address] Phone [email or web address] Care Team Providers Care Chemical Production Machine Operator Name Role Phone MayankLamont morrow Primary Care Provider Unavailabl e Reason for Visit * Reason Comments EAR / EYE / NOSE / THROAT ISSUE Encounter Details Date Type Department Care Team (Late st Contact Info) Description 03/27/2025 8:30 AM EDT Office Visit [facility] [address] [facility] [address] [facility] [place] [facility] [place] [address] Shauna Mullins, TY [address] [facility] [address] [place] [address] Acute suppurative otitis media of [...] this encounter Progress Notes * Shauna Mullins, LETTERPRESS SETTER - 03/27/2025 8:30 AM EDT Allergies Chart [...] symptoms worsen or failto improve. Subjective [place] Jansen is a 40 y.o. Reason(s) for visit on 03/27/2025: EAR / EYE / NOSE / THROAT ISSUE Comments (if any): HPI: Left ear pain: onset about 2 weeks ago; seen at [facility] treated for AOM with antibiotic and steroid; [...] tenderness or frontal sinus tenderness. Mouth/Throat: Lips: [place]. Mouth: Mucous membranes are moist. Pharynx: Posterior [...] Mood normal. Behavior: Behavior normal. Shauna Harpreet, LETTERPRESS SETTER 03/27/2025 documented in this encounter Miscellaneous Notes [...] trigger documented in this encounter Care Teams Chemical Production Machine Operator Relationship Specialty Start Date End Date Lamont Manrique, RADHA [address] PCP - General Storage Engineer 03/27/25 documented as of this encounter
--- OUTSIDE RECORDS SUMMARY | 2025-04-16 10:26 | XMS_ITS | Clinical Summary ---
Author Organization [facility] Address [address] [place] [address] Care Team Providers Care Revenue Liaison Name Role Phone Unavailable Primary Care Provider [...] Screening 2016 [facility]-HPV/Cotest 2016 11/08/2007, 11/18/2006, 11/06/2005 [id number] Vaccine ( season) 2025 [facility]-Influenza Vaccine (#1) [...] Narrative SUNQUEST - 11/14/2007 2:20 PM EDT PSYCHIATRIC MR #: [id number] [facility] [place], [place] [address] 1985 (Age: 22) FW Collect Date: 11/08/2007 00:00 Receipt Date: 11/09/2007 08:42 Page 1 DEPARTMENT OF PATHOLOGY AND LABORATORY MEDICINE CYTOPATHOLOGY REPORT Email: [email or web address] ATTENDING MD/Practitioner: BRANDEN Hernandez Service: CLINIC CLERK Location: [facility] Reported: 11/14/2007 [...] results is suggested (please call Microbiology at [phone] for results). CLINICAL INFORMATION: Menstrual History: Cyclic Date of Last Menstrual Period: 10/25/07 Other Clinical Conditions: Clinical information indicates patient has high risk factor(s). SPECIMEN DESCRIPTION: A: THIN PREP (CERVICAL/VAGINAL) THIN PREP PROCESS CELLULAR ENHANCEMENT ICD: V76.2 CERVIX, SPECIAL SCREENING FOR MALIGNANT NEOPLASM V15.89 OTHER PERSONAL HISTORY PRESENT HAZARDS TO HEALTH F: A; RT IMAGE [id number], RT IMAGE [id number] <CR>, 00018 [facility] [place] SNOMED CODES: A; [id number] In cases where a pathologist has signed out the report, the service has been rendered in part by a resident. The signing pathologist has performed and is responsible for the reported pathologic evaluation. us Amie Marcos APRN LAB PATHOLOGY ORDERABLES Final Result SUNQUEST from Last 3 Months or Most Recently Relevant to Health Maintenance
--- OUTSIDE RECORDS SUMMARY | 2025-04-16 10:26 | XMS_ITS | Clinical Summary ---
Author Organization [facility] Address [address] [place] [address] Phone [email or web address] Care Team Providers Care Under Seal Operator Name Role Phone Lamont Manrique Primary Care Provider Unavailabl e Allergies Active Allergy Reactions Criticality Noted Date Comments Penicillins Hives 03/27/2025 Medications Semaglutide-Weig ht Management (Wegovy 2.4 MG/0.75ML SC) 2.4 MG/0.75ML solution auto-injector Inject 2.4 mg under the skin per week. 5 Active Tri-Linyah 0.18/0.215/0.25 MG-35 MCG per tablet Take 1 tablet by mouth 1 (one) time each day. 5 Active levocetirizine (Xyzal Allergy 24HR) 5 MG tablet Take 5 mg by mouth 1 (one) time each day in the evening. Active hydroCHLOROthiaz magdalene 12.5 MG tablet Take 12.5 mg by mouth 1 (one) time each day. 5 Active bisoprolol (ZEBETA) 5 MG tablet Take 5 mg by mouth 1 (one) time each day. 5 Active Ferrous Sulfate Dried (FERROUS SULFATE IRON PO) Take 1 tablet by mouth 1 (one) time each day. Active escitalopram (LEXAPRO) 20 MG tablet Take 20 mg by mouth 1 (one) time each day. 5 Active doxycycline (VIBRAMYCIN) 100 MG capsuleIndicatio ns:Acute [...] for at least 30 mins. 10 capsule 04/01/20 25 Active Problems Problem Noted Date Diagnosed Date Anxiety 03/27/2025 Hypertension 03/27/2025 Seasonal allergies 03/27/2025 Assessment & Plan (03/27/2025 8:54 AM EDT): Continue Xyzal, add fluticasone nasal spray and saline sinus rinse. Encounters Date Type Department Care Team Description 03/27/2025 8:30 AM EDT Office Visit [facility] [address] [facility] [address] [facility] [place] [address] Shauna Mullins APRN Acute suppurative [...] (1 - Tdap) 2005 Covid-19 Immunization ( season) 2025 04/30/2021, 09/08/2020, 08/14/2020 Influenza Immunization (#1) 03/19/202504/18, 07/22/2023, 06/30/2022, Additional history exists HIB Immunization Aged Out No longer e ligible based on patient's age to complete this topic Hepatitis A Immunization Aged Out No longer eligible based on patient's age to complete this topic Pneumococcal Immunization Aged Out No longer eligible based on patient's age to complete this topic Polio Immunization Aged Out No longer eligible based on patient's age to complete this topic Varicella Immunization Aged Out No lo nger eligible based on patient's age to complete this topic Insurance [employer] NO COPAY NB Care Teams Under Seal Operator Relationship Specialty [place] [address] PCP - General Levi Maker 03/27/25
--- OUTSIDE RECORDS SUMMARY | 2025-04-16 10:26 | XMS_ITS | Patient Health Record ---
Author Organization [facility] Address [address] [place] [address] Care Team Providers Care Home Health Billing Specialist Name Role Phone Selam Haynes Unavailable [phone] Allergies Allergen (clinical drug ingredient) Drug/Non Drug [...] Status W/U Status Risk Notes Problem Hypertension (21160420) Hypertension (I10) Active confirmed Problem Anxiety (85170789) Anxiety (F41.9) Active confirmed Vital Signs Temperature 97.8 degrees Fahrenheit 03/18/2025 Respiratory Rate 16 /min 03/18/2025 Oximetry 97 03/18/2025 Blood pressure diastolic 78 mm Hg 03/18/2025 Height 65 in 03/18/2025 Blood pressure systolic 118 mm Hg 03/18/2025 Weight 268.8 lbs 03/18/2025 BMI 44.73 kg/m2 03/18/2025 Encounters Encounter Location Date Provider Diagnosis [facility] [address] [place] [address] [place] [id number] 08/20/2024 Selam Haynes Encounter for screening for COVID-19 Z11.52 and Influenza A J10.[address] [place] [address] [address] [place] [address] 03/18/2025 Selam Haynes Negative depression screening Z13.31 [...] Coverage Start Date Coverage End Date [facility] [address] [place] [address] [id number] [place] Jansen Self - patient is the insured Medical (General) History Medical History History ICD Code Hypertension I10 Anxiety F41.9 Surgical History Surgery Date(Month/Year) gallbladder [facility] Hospitalization History Reason Date(Month/Year) as above
--- NOTE | 2025-04-16 11:00 | US_ITS ---
FINAL REPORT CLINICAL HISTORY: Right US guided biopsy -- M[facility] - DR.ALEX BUSTOS FINDINGS: ULTRASOUND-GUIDED RIGHT BREAST CORE BIOPSY TECHNIQUE: Limited images were obtained to localize region of interest. The right breast was prepped in a routine sterile fashion and locally anesthetized with 1% lidocaine. Standard written informed consent was obtained. Small approximate 3 mm lesion was identified at 9:00 for biopsy.An 11-gauge vacuum assisted hand-held device was utilized. The needle was positioned posterior to the lesion. Multiple vacuum assisted core samples were obtained. The lesion was noted to be significantly smaller following biopsy. A biopsy marker clip was deployed in satisfactory position. Postbiopsy mammogram showed postbiopsy changes with clip in satisfactory position. Procedure was well tolerated . CONCLUSION: 1. Technically successful ultrasound guided vacuum assisted core biopsy of right breast lesion as above. 2. 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 No evidence of malignancy or atypia. Short-term sonographic and mammographic follow-up is recommended as normal post benign biopsy surveillaance in 6 months. If findings are stable patient may return to annual screening mammography. Authenticated and ERN
--- NOTE | 2025-04-16 11:28 | MM_ITS ---
FINAL REPORT CLINICAL HISTORY: CLIP PLACEMENT FINDINGS: MAMMOGRAM RIGHT TECHNIQUE: Standard digital 2-D views COMPARISON: 09/28/2024 DENSITY: There are scattered areas of fibroglandular density FINDINGS: Post biopsy marker clip is noted to be in satisfactory position. Postbiopsy changes are noted. IMPRESSION: Biopsy marker clip in good position ASSESSMENT: A post-procedure mammogram is used to confirm the position and deployment of a breast tissue marker after a biopsy RECOMMENDATION: Given benign findings of fibroepithelial lesion, short-term 6 month demographic and sonographic follow-up of right breast is recommended as part of normal post benign biopsy surveillance. If imaging findings are stable patient may return to annual screening exams. Authenticated and ERN
== END 2025-04-16 23:59 | disposition home or self-care (01) ==
LOC: RAD 10:24
PROVIDERS: PCP Nurse Practitioner Family; Visit Provider Obstetrics & Gynecology
DX: D24.1 Benign neoplasm of right breast (principal)
CPT/HCPCS: 19083; 77065; C2618